=== PATIENT | female | born 1990 | race Caucasian/White ===

== ENCOUNTER 2020-12-05 14:12 | Outpatient (CLI) | payer OTHER, SELFPAY | END 2020-12-05 14:13 | disposition home or self-care (01) | LOC: ANHLAB 14:21 | PROVIDERS: PCP Family Medicine; Visit Provider Obstetrics & Gynecology | DX: Z34.91 Encounter for supervision of normal pregnancy, unspecified, first trimester (principal) | CPT/HCPCS: 36415; 86870; 86886; 86900; 86901 ==

== ENCOUNTER 2021-05-27 11:27 | Outpatient (CLI) | payer OTHER, SELFPAY ==
[2021-05-27 12:54] LABS: Hematocrit 31.8 % (37.0-47.0); Mean Corpuscular HGB Conc 34.6 g/dl (32-36); Mean Corpuscular Volume 83.9 fl (80-100); Mean Platelet Volume 9.3 fl (7.4-10.4); Platelet Count Result 335 k/mm3 (150-375); Red Blood Count 3.79 M/mm3 (4.2-5.4); Red Cell Distribution Width 12.7 % (11.5-14.5); White Blood Count 11.2 K/mm3 (4.5-10.0)
[2021-05-27 13:07] LABS: Glucose 1 Hour PP 50gm Dose 141 mg/dL
[2021-05-27 13:49] LABS: HIV 1/2 Ab P24 Ag Result Negative (Negative)
== END 2021-05-27 11:28 | disposition home or self-care (01) ==
LOC: ANHLAB 11:30
PROVIDERS: PCP Family Medicine; Visit Provider Obstetrics & Gynecology
DX: Z34.92 Encounter for supervision of normal pregnancy, unspecified, second trimester (principal); Z3A.00 Weeks of gestation of pregnancy not specified
CPT/HCPCS: 36415; 82947; 85027; 86703; 86850; 86870; 86886; 86900; 86901; G0432

== ENCOUNTER 2021-06-01 08:06 | Outpatient (CLI) | payer OTHER, SELFPAY ==
[2021-06-01 08:49] LABS: Glucose Fasting Gestational 90 mg/dL (>/=95)
[2021-06-01 10:29] LABS: Glucose 1 Hour Gest 186 mg/dL (>/=180)
[2021-06-01 11:25] LABS: Glucose 2 Hour Gest 118 mg/dL (>/= 155)
[2021-06-01 12:29] LABS: Glucose 3 Hour Gest 94 mg/dL (>/=140)
== END 2021-06-01 08:07 | disposition home or self-care (01) ==
PROVIDERS: PCP Family Medicine; Visit Provider Obstetrics & Gynecology
DX: R73.09 Other abnormal glucose (principal)
CPT/HCPCS: 36415; 82951; 82952

== ENCOUNTER 2021-07-17 14:26 | Outpatient (CLI) | payer OTHER, SELFPAY ==
[2021-07-17 15:35] LABS: SARS-CoV-2 Ag Negative (Negative)
== END 2021-07-17 14:27 | disposition home or self-care (01) ==
LOC: CHSLAB 14:27
PROVIDERS: PCP Family Medicine; Visit Provider Family Medicine
DX: Z20.822 Contact with and (suspected) exposure to COVID-19 (principal)
CPT/HCPCS: 87426; C9803

== ENCOUNTER 2022-12-01 03:30 | Emergency (ER) | payer OTHER, SELFPAY ==
[2022-12-01 03:39] VITALS: BP 146/106; PULSE 84; RESP 16; TEMP 36.8; O2SAT 100
--- NOTE | 2022-12-01 04:00 | ED.GENADULT ---
HPI - General Adult General Chief complaint: Wound/Laceration Stated complaint: Finger Laceration History of Present Illness HPI narrative: This is a 32-year-old female presenting ED with a finger laceration. Patient was cutting wood with a chainsaw when she caught her finger on the blade. She has a Shallow 1 cm laceration to the medial aspect of her 4th digit. It is not gaping. No numbness tingling or weakness. unknown when her last tetanus was. Related Data Home Medications Medication Instructions Recorded Confirmed No Home Medications 12/01/22 12/01/22 Allergies Allergy/AdvReac Type Severity Reaction Status Date / Time omeprazole Allergy Severe Anaphylactic Verified 07/01/17 14:56 Shock Penicillins Allergy Intermediate Rash Verified 07/01/17 14:56 albuterol Allergy Unknown Verified 12/01/22 03:38 Exam Narrative: APPEARANCE: No apparent distress. patient is pleasant polite in the interview Head: atraumatic. EYES: EOMI, NOSE: Atraumatic NECK: Trachea midline RESPIRATORY: No increased rate of breathing CARDIOVASCULAR: RRR, ABDOMINAL: Non-distended MUSCULOSKELETAl: No obvious deformities NEURO: Alert. Moving 4/4 extremities SKIN:: focal exam of the right hand reveals a shallow 1 cm laceration. Non gaping. No damage to internal structures. PSYCHIATRIC: Normal affect Course Vital Signs Vital signs: Vital Signs Temperature 98.2 F 12/01/22 03:39 Pulse Rate 84 12/01/22 03:39 Respiratory Rate 16 12/01/22 03:39 Blood Pressure 146/106 H 12/01/22 03:39 Pulse Oximetry 100 12/01/22 03:39 Oxygen Delivery Room Air 12/01/22 03:39 Temperature 98.2 F 12/01/22 03:39 Pulse Rate 84 12/01/22 03:39 Respiratory Rate 16 12/01/22 03:39 Blood Pressure 146/106 H 12/01/22 03:39 Pulse Oximetry 100 12/01/22 03:39 Oxygen Delivery Room Air 12/01/22 03:39 Medical Decision Making [facility] Narrative Medical decision making narrative: -Presentation: 32-year-old female presenting with a shallow finger laceration. Unknown tetanus. 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 -External Chart Review: none -Hx from independent Sources: none -Discussion of Management/Consultants: none -Independent interpretation of studies: none Dx tests considered but not ordered: none -Procedures: none -Interventions: Tdap, bacitracin, Band-Aid -Shared decision making / Disposition: discussed sutures versus glue versus no repair. Wound is not gaping shallow and does not need to be sutured. Patient is comfortable w/ Band-Aid. She will return if she develops signs of infection. -RX Vital Signs Vital Signs: Vital Signs Temperature 98.2 F 12/01/22 03:39 Pulse Rate 84 12/01/22 03:39 Respiratory Rate 16 12/01/22 03:39 Blood Pressure 146/106 H 12/01/22 03:39 Pulse Oximetry 100 12/01/22 03:39 Oxygen Delivery Room Air 12/01/22 03:39 Temperature 98.2 F 12/01/22 03:39 Pulse Rate 84 12/01/22 03:39 Respiratory Rate 16 12/01/22 03:39 Blood Pressure 146/106 H 12/01/22 03:39 Pulse Oximetry 100 12/01/22 03:39 Oxygen Delivery Room Air 12/01/22 03:39 Discharge Plan Discharge Clinical Impression: Laceration Patient Disposition: Home, Self-Care Condition: Stable Instructions: Antibiotic Form, Laceration (ED) Additional Instructions: Your seen in the emergency department for the finger laceration. It was not deep enough to require sutures. Please keep it clean and use Neosporin/ bacitracin with a Band-Aid. Please return emergency department if he becomes red, inflamed or has pus drainage. Otherwise please follow-up with your primary care physician. Prescriptions: No Action No Home Medications Follow-up/Referrals: Rere,MD Gianni [Primary Care Provider] -
[2022-12-01] MEDS: TETANUS,DIPHTHERIA,AC PERTUSSIS ADULT 0.5 ML (ADACEL) IM (04:07)
[2022-12-01 04:19] VITALS: BP 158/111; PULSE 84; RESP 16; O2SAT 100
== END 2022-12-01 04:20 | disposition home or self-care (01) ==
LOC: CHSED 04:06
PROVIDERS: Emergency Provider Emergency Medicine; PCP Family Medicine
DX: S61.214A Laceration without foreign body of right ring finger without damage to nail, initial encounter (principal); Z23 Encounter for immunization; W29.3XXA Contact with powered garden and outdoor hand tools and machinery, initial encounter
CPT/HCPCS: 90471; 90715; 99282

== ENCOUNTER 2023-07-28 14:56 | Outpatient (CLI) | payer OTHER, SELFPAY ==
--- NOTE | ~2023-07-28 | US_ITS ---
EXAMINATION: US OB <= 14 weeks fetus DATE: 07/28/2023 15:42 INDICATION: Amenorrhea with likely first trimester TECHNIQUE: Real-time pelvic ultrasound utilizing both a transvaginal and transabdominal probe was pe rformed. The interpreting radiologist was not present for the study. COMPARISON: None. FINDINGS: The uterus measures 9.7 x 7.9 x 9.2 cm. There is an intrauterine gestational sac.Single pole w ith crown-rump length measuring 6.3, which correlates with an estimated gestational age of 12 weeks a nd 5 days. heart motion is identified measuring 157 beats per minute (bpm) by M-mode Doppler. The bilateral ovaries were unable to be visualized. There is no free fluid in the pelvis. IMPRESSION: 1. Single living fetus with heart rate of 157 bpm. 2. Gestational age by ultrasound of 12 weeks 5 day(s) +/- 1 week and 1 days with ultrasound estimate d date of delivery (GAUDENCIO) of 02/04/2024. Reviewed, dictated and finalized at location A. 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 Single living fetus with heart rate of 157 bpm. 2. Gestational age by ultrasound of 12 weeks 5 day(s) +/- 1 week and 1 days wi th ultrasound estimated date of delivery (GAUDENCIO) of 02/04/2024.
== END 2023-07-28 14:57 | disposition home or self-care (01) ==
PROVIDERS: PCP Family Medicine; Visit Provider Obstetrics & Gynecology
DX: N91.2 Amenorrhea, unspecified (principal)
CPT/HCPCS: 76801

== ENCOUNTER 2024-01-04 13:58 | Observation (INO) | payer OTHER, SELFPAY ==
[2024-01-04] VITALS (38 sets, daily range): BP systolic 130–168; BP diastolic 82–113; PULSE 63–90; RESP 16; TEMP 36.6; BMI 29.9
--- NOTE | ~2024-01-04 | US_ITS ---
EXAMINATION: US OB /maternal detail DATE: 01/04/2024 13:54 INDICATION: anatomic survey. No pericardial care. TECHNIQUE: Real-time ultrasound of the pelvis was performed. COMPARISON: Ultrasound 07/28/2023 FINDINGS: There is a single living fetus in vertex presentation. The placenta is fundal. heart rate is 1 31 beats per minute (bpm). The amniotic fluid index is 18.3 cm, which is normal. The cervical length is 2.9 cm on transabdominal images, which is normal. The following biometric data were obtained: Biparietal diameter (BPD): 8.7 cm; head circumference (HC): 33.3 cm; abdominal circumference (AC): 31 .6 cm; femur length (FL): 6.7 cm. These measurements are concordant. Estimated weight is 2707 g +/- 406 g, which correlates with the 49th percentile when 02/04/24 is used as estimated date of delivery. As single measurements, these parameters are each equal to the following estimated gestational ages: BPD: 35 weeks 2 days. HC: 38 weeks 0 days. AC: 35 weeks 4 days. FL: 34 weeks 5 days. estimated gestational age based solely on measurements from this exam is 35 weeks 6 days +/- 2 weeks 4 days. The brain is not well evaluated. The visualized portions of the spine are normal. The heart is normal . The diaphragm, stomach, kidneys, and bladder are normal. There are two umbilical arteries to yield a 3-vessel cord. The cord insertion is normal. IMPRESSION: 1. Single living fetus in vertex presentation. 2. Estimated weight is 2707 g +/- 406 g, which correlates with the 49th percentile when 4 is used as estimated date of delivery. This day was set by ultrasound on 07/28/2023. 3. brain not well evaluated. Otherwise normal anatomic survey. Reviewed, dictated and finalized at location A. IMPRESSION: 1. Single living fetus in vertex presentation. 2. Estimated weight is 2707 g +/- 406 g, which correlates with the 49th percentile when 02/04/24 is used as estimated date of delivery. This day was set by ultrasound on 07/28/2023. 3. brain not well evaluated. Otherwise normal anatomic survey.
--- NOTE | 2024-01-04 12:20 | PC.NURSE ---
Dr. Barrett had called from office with orders on this pt prior to her arrival. Pt has only had 1 care visit in August. Hx of preeclampsia with all 3 previous pregnancies and 3 previous C/S's. Hx of delivering at 34-36 wks gestation.
[2024-01-04 13:45] LABS: Basophils Absolute Auto 0.1 K/mm3 (0.0-0.1); Basophils Percent Auto 0.6 % (0.2-1.2); Eosinophils Absolute Auto 0.2 K/mm3 (0-0.3); Eosinophils Percent Auto 1.6 % (0-4.4); Hematocrit 31.8 % (37.0-47.0); Hemoglobin 10.4 g/dL (12.0-15.0); Immature Granulocyte Absolute 0.08 K/mm3 (0.00-0.031); Immature Granulocyte Percent A 0.7 % (0-0.5); Lymphocytes Absolute Auto 1.73 K/mm3 (0.9-3.2); Mean Corpuscular HGB Conc 32.7 g/dl (32-36); Mean Corpuscular Hemoglobin 26.7 pg (26-34); Mean Corpuscular Volume 81.5 fl (80-100); Mean Platelet Volume 10.5 fl (7.4-10.4); Monocytes Absolute Auto 0.5 K/mm3 (0.1-0.6); Monocytes Percent Auto 4.5 % (2.6-8.5); Neutrophils Percent Auto 77.6 % (45.5-73.1); Platelet Count Result 312 k/mm3 (150-375); Red Cell Distribution Width 13.2 % (11.5-14.5); White Blood Count 11.6 K/mm3 (4.5-10.0)
[2024-01-04 13:53] LABS: Creatinine Urine 149.3 mg/dL; Total Protein Urine Random 25 mg/dL; Ur Ttl Prot Creatinine Ratio 0.17 mg/mg (0-0.20)
[2024-01-04 13:54] LABS: Alanine Aminotransferase 12 U/L (6-35); Albumin Level 3.4 g/dL (3.5-5.1); Alkaline Phosphatase 197 U/L (38-126); Anion Gap 7 mmol/L (4-12); Aspartate Amino Transferase 24 U/L (14-36); Bilirubin,Total 0.4 mg/dL (0.2-1.3); Blood Urea Nitrogen 12 mg/dL (7-17); Calcium 8.8 mg/dL (8.4-10.2); Carbon Dioxide 20 mmol/L (22-30); Chloride 107 mmol/L (98-107); Estimated Glomerular Filt Rate > 60; Glucose 96 mg/dL (65-110); Potassium 4.1 mmol/L (3.4-5.0); Sodium 134 mmol/L (137-145)
[2024-01-04 14:03] LABS: Amphetamine Screen Urine Negative (Negative); Barbiturate Screen Urine Negative (Negative); Benzodiazepines Screen Urine Negative (Negative); Cannabinoid Screen Urine Negative (Negative); Cocaine Screen Urine Negative (Negative); Methadone Screen Urine Negative (Negative); Opiate Screen Urine Negative (Negative); Phencyclidine Screen Urine Negative (Negative)
[2024-01-04 14:13] LABS: Appearance Urine Clear (Clear); Bacteria Urine None Seen /hpf; Bilirubin Urine Negative (Negative); Blood Urine Negative (Negative); Color Urine Yellow (Yellow); Glucose Urine UA Negative (Negative); Ketones Urine Negative (Negative); Leukocyte Esterase Ur 1+ LEU/UL (Negative); Need Manual Microscopic Reviewed; Nitrate Urine Negative (Negative); Non Pathogenic Casts 0-2; Protein Urine 1+ mg/dL (Negative); RBC Urine 0-2 /hpf (0-2); Specific Grav Ur 1.018 (1.001-1.035); Squamous Epithelial Cell Urine Occasional /hpf (Few); WBC Urine 21-50 /hpf (0-3)
[2024-01-04 14:14] LABS: Add Urine Microscopic? YES
[2024-01-04] MEDS: LABETALOL HCL 100 MG TABLET PO (14:21)
[2024-01-04 14:33] LABS: HIV 1/2 Ab P24 Ag Result Negative (Negative); Hepatitis B Surface Antigen Negative (Negative); Rubella IgG Antibody 22.6 IU/ML
[2024-01-04 14:57] LABS: Hepatitis C Virus Antibody Negative (Negative)
[2024-01-04 15:21] LABS: Rapid Plasma Reagin Non-Reactive (NonReactive)
[2024-01-04] MEDS: LABETALOL HCL INJ 100 MG/20 ML VIAL 20 MG IV PUSH (15:31)
[2024-01-04] MEDS: LABETALOL HCL INJ 100 MG/20 ML VIAL 40 MG IV PUSH (16:43)
[2024-01-04] MEDS: BETAMETHASONE SOD PHOS/ACETATE 30 MG/5 ML VIAL 12 MG IM (16:57)
[2024-01-04] MEDS: FAMOTIDINE 20 MG/2 ML VIAL IV PUSH (17:39)
--- NOTE | 2024-01-04 18:23 | PM.IMHP ---
H&P: HPI History of Present Illness Date/Time: 01/04/24 18:23 Chief Complaint: exacerbation of chronic hypertension intrauterine insufficient care Narrative: 33 yo who presents at 35w6d with elevated blood pressures. Pt presented to outpatient OB visit. Pt was noted to have severe range BP. Pt had not have care since her initial OB visit in August at 15w. Pt had elevated blood pressures at that time. She was started on labetalol 100 mg BID. Pt states she has been compliant with that medication as well as daily low dose aspirin. Pt was a history of preeclampsia. Pt was admitted to antepartum service of blood pressure control. Review of Systems Cardiovascular: Cardiovascular: Denies chest pain, Denies leg edema, Denies palpitations, Denies dyspnea and Denies dyspnea on exertion Respiratory: Respiratory: Denies cough, Denies dyspnea and Denies dyspnea on exertion Gastrointestinal: Gastrointestinal: Denies abdominal pain, Denies constipation, Denies diarrhea, Denies nausea and Denies vomiting Genitourinary: Genitourinary: Denies hematuria, Denies urinary frequency, Denies dysuria, Denies pelvic pain, Denies urinary incontinence and Denies vaginal discharge Neurologic: Reports system reviewed and no additional complaints, except as documented Psychiatric: Psychiatric: Reports no additional psychiatric complaints Endocrine: Endocrine: Denies palpitations PMFSH Past Medical History Medical History Anxiety Degenerative disc disease Fibromyalgia Hypertension Surgical History Surgical History Delivery by section (07/31/17) primary c/s preeclampsia Delivery by section (08/15/18) rpt c/s Delivery by section (06/12/21) rpt c/s Social History Social History Smoking status: Never smoker Second hand tobacco smoke exposure: Yes Alcohol intake: never Substance use: former Substance use type: marijuana Last use: 06/15/2023 Lack of Transportation: No Lack of Food: Never True Current Housing: I Have Housing Concerned About Future Housing: No Difficulty Paying Gas/Electric Bills: No Difficulty Paying for Meds: No Currently Unemployed: No Education: High School Diploma/GED Difficulty w/ Childcare or Family Care: No Living arrangements: other Additional living arrangements comments: single Occupation/Education: occupation 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 Gender identity (if verbalized by the patient): Female Sexual Orientation (if Verbalized by the Patient): Straight or Heterosexual Meds Home Medications and Allergies Home Medications Medication Instructions Recorded Confirmed Type labetalol 100 mg tablet 100 mg PO Q12H #90 tabs 08/17/23 01/04/24 Rx vitamins-iron fumarate 65 1 tablet PO DAILY 08/17/23 01/04/24 History mg iron-folic acid 1 mg tablet aspirin 81 mg tablet,delayed 162 mg PO BID 01/04/24 01/04/24 History release (Adult Aspirin Regimen) Allergies Allergy/AdvReac Type Severity Reaction Status Date / Time omeprazole Allergy Severe Anaphylactic Verified 01/04/24 11:02 Shock Penicillins Allergy Intermediate Rash Verified 01/04/24 11:02 albuterol AdvReac Intermediate Unknown Verified 01/04/24 12:59 Vital Signs Vital Signs - 24 hr 01/04/24 12:41 01/04/24 12:45 01/04/24 13:00 Pulse Rate 72 76 83 Blood Pressure 152/97 H 150/103 H 150/105 H Blood Pressure [Right Arm] 01/04/24 13:17 01/04/24 13:52 01/04/24 14:21 Pulse Rate 77 71 68 Blood Pressure 156/100 H 158/102 H 159/102 H Blood Pressure [Right Arm] 01/04/24 15:00 01/04/24 15:15 01/04/24 15:30 Pulse Rate 65 76 68 Blood Pressure 163/93 H 164/107 H 166/113 H Blood Pressure [Right Arm] 01/04/24 15:45 01/04/24 16:00 01/04/24 16:1
[2024-01-04] MEDS: hydrALAZINE HCL 20 MG/ML VIAL 10 MG IV PUSH (18:27)
[2024-01-04] MEDS: LABETALOL HCL 100 MG TABLET 200 MG PO (20:57)
[2024-01-05] VITALS (14 sets, daily range): BP systolic 130–151; BP diastolic 84–95; PULSE 72–110; RESP 18–20; TEMP 36.7–36.9; O2SAT 97–100
--- NOTE | 2024-01-05 07:22 | PC.NURSE ---
Dr. Barrett on unit and in to see pt. Discussed BP's. thinking about increasing her Labetalol to TID. OK to give morning dose now.
[2024-01-05] MEDS: LABETALOL HCL 100 MG TABLET 200 MG PO ×2 (07:35→12:10)
[2024-01-05] MEDS: FAMOTIDINE 20 MG TABLET PO (09:59)
--- NOTE | 2024-01-05 11:57 | PC.NURSE ---
Dr. Barrett informed of BP's from this morning. Order received to give additional dose of Labetalol 200 mg po now. He will be by to see pt again later.
--- NOTE | 2024-01-05 15:36 | PM.DS ---
DS: Admitting Diagnosis Discharge Date 01/05/24 Admitting Diagnosis Intrauterine Exacerbation of chronic hypertension Insufficient DS: Discharge Diagnosis Discharge Diagnosis (1) Insufficient care in third trimester: Code(s): O09.33 - Supervision of with insufficient care, third trimester Status: Acute (2) Chronic hypertension affecting : Code(s): O10.919 - Unspecified pre-existing hypertension complicating , unspecified trimester Status: Acute (3) Supervision of high risk , unspecified, third trimester: Code(s): O09.93 - Supervision of high risk , unspecified, third trimester Status: Acute DS: Summary Hospital Course Reason for hospitalization: exacerbation of chronic hypertension Hospital Course: 33-year-old female who presented to the office at 35 weeks 5 days for routine OB visit. Patient had not been seen for any care since August. Patient is a known chronic hypertensive. She states she was taking labetalol 100 mg b.i.d. as well as low-dose aspirin. Patient was found have severe range blood pressures. She was admitted for blood pressure control and evaluation for preeclampsia. Status at Discharge Functional status at discharge: independent ambulation Overall status at discharge: patient is back to baseline Time Spent with Patient Time attestation: Total time spent providing and/or coordinating discharge services: Time spent: Less than 30 minutes Exam Const: General: cooperative, comfortable and no acute distress Resp: Effort & Inspection: normal respiratory effort and able to speak in complete sentences Cardio: Rate: regular rate Rhythm: regular rhythm GI: GI Palp: Yes Soft to palpation, No Tenderness to palpation present (GI) and No Guarding due to palpation present (GI) DS: Data Data Completed and Pending Labs on day of discharge: Labs from last 24 hours 01/04/24 13:19 Antibody Identification Anti-D Antigen Identification TNP AYAN, IgG Interpret Negative AYAN, Poly Interpret TNP AYAN, Complement Interp Negative Discharge Plan Discharge Discharging Clinician: Tito Barrett Patient Disposition: Home, Self-Care Activity: as tolerated Diet: regular Patient Instructions: Antibiotic Form Stand Alone Forms: General Discharge Information Follow-up/Referrals: Tito Barrett MD [Physician] - 1 Week Discharge Medications: New labetalol 100 mg Tablet 200 mg PO TID Qty: 90 1RF Continued vit-iron fum-folic ac 65 mg iron- 1 mg tablet 1 tablet PO DAILY aspirin [Adult Aspirin Regimen] 81 mg tablet,delayed release (DR/EC) 162 mg PO BID Discontinued labetalol 100 mg tablet 100 mg PO Q12H Qty: 90 2RF Date of admission: 01/04/24 13:58 Primary Care Provider: RereGianni Admitting Provider: Thang Garcia Attending physician on admission: Thang Garcia Condition: Stable
--- NOTE | 2024-01-05 15:39 | PC.NURSE ---
Dr. Barrett called with discharge instructions for pt. informed of anti-D antibody that blood bank identified and they sent a laminated card and a letter for pt to keep with her. OK to give Celestone now.
[2024-01-05] MEDS: BETAMETHASONE SOD PHOS/ACETATE 30 MG/5 ML VIAL 12 MG IM (16:00)
== END 2024-01-05 16:11 | disposition home or self-care (01) ==
LOC: ANHOBOP 01-05 10:07 → ANHOBPP 01-05 15:38
PROVIDERS: Admitting Provider Student in an Organized Health Care Education/Training Program; PCP Family Medicine; Visit Provider Student in an Organized Health Care Education/Training Program
DX: O10.913 Unspecified pre-existing hypertension complicating pregnancy, third trimester (principal); O09.33 Supervision of pregnancy with insufficient antenatal care, third trimester; O09.523 Supervision of elderly multigravida, third trimester; Z3A.35 35 weeks gestation of pregnancy
CPT/HCPCS: 36415; 59025; 76805; 80053; 80307; 81001; 82570; 84156; 84550; 85025; 86592; 86703; 86762; 86803; 86850; 86880; 86900; 86901; 86902; 87086; 87340; 96372; 96374; 96375; 96376; A9270; G0378; G0379; G0432; J0360; J0702

== ENCOUNTER 2024-01-13 09:25 | Inpatient (IN) | payer OTHER, SELFPAY ==
[2024-01-13] VITALS (60 sets, daily range): BP systolic 118–177; BP diastolic 79–106; PULSE 52–128; RESP 18–23; TEMP 36.1–36.8; O2SAT 89–100; BMI 30.8
--- NOTE | 2024-01-13 09:09 | PM.IMHP ---
H&P: HPI History of Present Illness Date/Time: 01/13/24 09:09 Chief Complaint: intrauterine at term Chronic hypertension Prior x3 Request for permanent sterilization Narrative: 33-year-old who presents at 37 weeks 0 days for repeat in the setting of chronic hypertension. Patient's is complicated by chronic hypertension on labetalol. Patient's previous pregnancies were complicated by preeclampsia. Patient was seen for her new OB visit in August. Patient was lost to care until her last visit at 35 weeks. Patient's blood pressures were elevated at that visit. Patient's lab work was negative for preeclampsia. Will plan for repeat at 37 weeks Review of Systems Cardiovascular: Cardiovascular: Denies chest pain, Denies leg edema, Denies palpitations, Denies dyspnea and Denies dyspnea on exertion Respiratory: Respiratory: Denies cough, Denies dyspnea and Denies dyspnea on exertion Gastrointestinal: Gastrointestinal: Denies abdominal pain, Denies constipation, Denies diarrhea, Denies nausea and Denies vomiting Genitourinary: Genitourinary: Denies hematuria, Denies urinary frequency, Denies dysuria, Denies pelvic pain, Denies urinary incontinence and Denies vaginal discharge Neurologic: Reports system reviewed and no additional complaints, except as documented Psychiatric: Psychiatric: Reports no additional psychiatric complaints Endocrine: Endocrine: Denies palpitations PMFSH Past Medical History Medical History Anxiety Degenerative disc disease Fibromyalgia Hypertension Surgical History Surgical History Delivery by section (07/31/17) primary c/s preeclampsia Delivery by section (08/15/18) rpt c/s Delivery by section (06/12/21) rpt c/s Social History Social History Smoking status: Never smoker Second hand tobacco smoke exposure: Yes Alcohol intake: never Substance use: former Substance use type: marijuana Last use: 06/15/2023 Lack of Transportation: No Lack of Food: Never True Current Housing: I Have Housing Concerned About Future Housing: No Difficulty Paying Gas/Electric Bills: No Difficulty Paying for Meds: No Currently Unemployed: No Education: High School Diploma/GED Difficulty w/ Childcare or Family Care: No Living arrangements: other Additional living arrangements comments: single Occupation/Education: occupation 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 Gender identity (if verbalized by the patient): Female Sexual Orientation (if Verbalized by the Patient): Straight or Heterosexual Meds Home Medications and Allergies Home Medications Medication Instructions Recorded Confirmed Type vitamins-iron fumarate 65 1 tablet PO DAILY 08/17/23 01/11/24 History mg iron-folic acid 1 mg tablet aspirin 81 mg tablet,delayed 162 mg PO BID 01/04/24 01/11/24 History release (Adult Aspirin Regimen) labetalol 100 mg tablet 200 mg PO TID #90 tabs 01/05/24 01/11/24 Rx Allergies Allergy/AdvReac Type Severity Reaction Status Date / Time omeprazole Allergy Severe Anaphylactic Verified 01/11/24 13:50 Shock Penicillins Allergy Intermediate Rash Verified 01/11/24 13:50 albuterol AdvReac Intermediate Unknown Verified 01/11/24 13:50 Exam Const: General: no acute distress Eyes: EOM: EOMs intact bilaterally Neck: Neck: supple Thyroid: thyroid normal Chest: Breast/axilla inspection: normal inspection of the breasts Breast/axilla palpation: normal palpation of the breasts, normal palpation of the axillae and no axillary lymphadenopathy Resp: Effort & Inspection: normal respiratory effort Auscultation: clear to auscultation bilaterally Cardio: Rate: regular rate Rhythm: regular r
--- NOTE | 2024-01-13 09:12 | WPDHPUPDATE1 ---
History and Physical Update Update Date/Time: 01/13/24 09:12 History and Physical has been reviewed, including an updated exam of the patient. There are NO changes in the patient's condition. Risks, benefits, and alternatives have been discussed and questions answered. Patient agrees to proceed with procedure.
--- NOTE | 2024-01-13 09:25 | LDADM ---
This patient, Simin Medeiros, was admitted to Labor/Delivery/Recovery 120 on 01/13/24 at 09:25. Plans for labor, pain management and were discussed with patient. Patient/family oriented to hospital policies and general routines including ID bracelet, bed and alarms, visiting hours, pain management, procedures, bathroom and other care routines, personal items, smoking policy, room service/diet and guest tray routines, security routines, and visiting hours. Patient/Family are encouraged to report perceived risks to care and to ask questions if they do not understand what they are told or what they should do. See OBIX for further documentation.
[2024-01-13 10:28] LABS: Basophils Absolute Auto 0.1 K/mm3 (0.0-0.1); Basophils Percent Auto 0.7 % (0.2-1.2); Eosinophils Absolute Auto 0.2 K/mm3 (0-0.3); Eosinophils Percent Auto 1.5 % (0-4.4); Hematocrit 32.7 % (37.0-47.0); Hemoglobin 10.6 g/dL (12.0-15.0); Immature Granulocyte Absolute 0.08 K/mm3 (0.00-0.031); Immature Granulocyte Percent A 0.8 % (0-0.5); Mean Corpuscular HGB Conc 32.4 g/dl (32-36); Mean Corpuscular Hemoglobin 26.4 pg (26-34); Mean Corpuscular Volume 81.3 fl (80-100); Mean Platelet Volume 10.4 fl (7.4-10.4); Monocytes Absolute Auto 0.5 K/mm3 (0.1-0.6); Monocytes Percent Auto 4.9 % (2.6-8.5); Neutrophils Absolute Auto 8.1 K/mm3 (1.3-6.7); Neutrophils Percent Auto 76.1 % (45.5-73.1); Platelet Count Result 347 k/mm3 (150-375); Red Blood Count 4.02 M/mm3 (4.2-5.4); Red Cell Distribution Width 13.2 % (11.5-14.5); White Blood Count 10.7 K/mm3 (4.5-10.0)
[2024-01-13 10:39] LABS: Alanine Aminotransferase 17 U/L (6-35); Albumin Level 3.3 g/dL (3.5-5.1); Alkaline Phosphatase 195 U/L (38-126); Anion Gap 3 mmol/L (4-12); Aspartate Amino Transferase 24 U/L (14-36); Bilirubin,Total 0.3 mg/dL (0.2-1.3); Blood Urea Nitrogen 11 mg/dL (7-17); Calcium 8.5 mg/dL (8.4-10.2); Carbon Dioxide 22 mmol/L (22-30); Chloride 107 mmol/L (98-107); Estimated CRCL calculation 115 ml/min; Estimated Glomerular Filt Rate > 60; Glucose 72 mg/dL (65-110); Potassium 4.4 mmol/L (3.4-5.0); Sodium 132 mmol/L (137-145)
[2024-01-13 11:19] LABS: HIV 1/2 Ab P24 Ag Result Negative (Negative)
[2024-01-13 12:34] LABS: Rapid Plasma Reagin Non-Reactive (NonReactive)
[2024-01-13] MEDS: ACETAMINOPHEN 500 MG TABLET 1000 MG PO (12:34)
[2024-01-13] MEDS: LACTATED RINGERS 1,000 ML 125 ML IV CONT (12:40)
--- NOTE | 2024-01-13 12:53 | WPDANESEPPF ---
Anes - Initial Pre Proc Eval Procedure: Operation Date: 01/13/24 12:00 Proposed Procedures p Repeat Section with Bilateral Salpingectomy - Tito Barrett MD Date/Time: 01/13/24 12:53 Surgeon: Tito Barrett MD Pre Op Diagnosis: chronic hypertension, prior csection Patient Data Age: 33 Gender: F Height: 1.6 m Weight: 79 kg Last Vital Signs Pulse 75 01/13/24 12:30 BP 170/98 H 01/13/24 12:30 Allergies Allergy/AdvReac Type Severity Reaction Status Date / Time omeprazole Allergy Severe Anaphylactic Verified 01/11/24 13:50 Shock Penicillins Allergy Intermediate Rash Verified 01/11/24 13:50 albuterol AdvReac Intermediate Unknown Verified 01/11/24 13:50 Home Medications Medication Instructions Recorded Confirmed Type vitamins-iron fumarate 65 1 tablet PO DAILY 08/17/23 01/11/24 History mg iron-folic acid 1 mg tablet aspirin 81 mg tablet,delayed 162 mg PO BID 01/04/24 01/11/24 History release (Adult Aspirin Regimen) labetalol 100 mg tablet 200 mg PO TID #90 tabs 01/05/24 01/11/24 Rx Laboratory Tests 01/13/24 01/13/24 10:05 10:06 WBC 10.7 H K/mm3 (4.5-10.0) RBC 4.02 L M/mm3 (4.2-5.4) Hgb 10.6 L g/dL (12.0-15.0) Hct 32.7 L % (37.0-47.0) MCV 81.3 fl (80-100) MCH 26.4 pg (26-34) MCHC 32.4 g/dl (32-36) RDW 13.2 % (11.5-14.5) Plt Count 347 k/mm3 (150-375) MPV 10.4 fl (7.4-10.4) Immature Gran % (Auto) 0.8 H % (0-0.5) Neut % (Auto) 76.1 H % (45.5-73.1) Lymph % (Auto) 16.0 L % (18.3-44.2) [place] % (Auto) 4.9 % (2.6-8.5) Eos % (Auto) 1.5 % (0-4.4) Baso % (Auto) 0.7 % (0.2-1.2) Lymph # (Auto) 1.70 K/mm3 (0.9-3.2) [place] # (Auto) 0.5 K/mm3 (0.1-0.6) Eos # (Auto) 0.2 K/mm3 (0-0.3) Baso # (Auto) 0.1 K/mm3 (0.0-0.1) Abs Immat Gran (auto) 0.08 H K/mm3 (0.00-0.031) Absolute Neuts (auto) 8.1 H K/mm3 (1.3-6.7) Absolute Nucleated RBC 0.000 K/mm3 (0.0-0.012) Nucleated RBC % 0.0 % (0.0-0.2) Sodium 132 L mmol/L (137-145) Potassium 4.4 mmol/L (3.4-5.0) Chloride 107 mmol/L (98-107) Carbon Dioxide 22 mmol/L (22-30) Anion Gap 3 L mmol/L (4-12) BUN 11 mg/dL (7-17) Creatinine 0.60 L mg/dL (0.7-1.0) Estim Creat Clear Calc 115 ml/min Estimated GFR > 60 (59 - ) Glucose 72 mg/dL (65-110) Uric Acid 5.0 mg/dL (2.5-7.5) Calcium 8.5 mg/dL (8.4-10.2) Total Bilirubin 0.3 mg/dL (0.2-1.3) AST 24 U/L (14-36) ALT 17 U/L (6-35) Alkaline Phosphatase 195 H U/L (38-126) Total Protein 7.0 g/dL (6.3-8.2) Albumin 3.3 L g/dL (3.5-5.1) RPR Non-reactive (NonReactive) HIV 1&2 Ab/P24 Ag 4thGn Negative (Negative) Blood Type B Negative Antibody Screen Positive Antibody Identification Pending Antigen Identification Pending AYAN, IgG Interpret Pending AYAN, Poly Interpret Pending AYAN, Complement Interp Pending Patient hx anesthesia problems: none Family hx anesthesia problems: none Results Review: All pre-operative results and documents have been reviewed as part of the pre-operative evaluation. [facility] Past Medical History Medical History Anxiety Degenerative disc disease Fibromyalgia Hypertension Surgical History Surgical History Delivery by section (07/31/17) primary c/s preeclampsia Delivery by section (08/15/18) rpt c/s Delivery by section (06/12/21) rpt c/s Social History Social History Smoking status: Never smoker Second hand tobacco smoke exposure:
[2024-01-13] MEDS: FAMOTIDINE 20 MG/2 ML VIAL IV PUSH (12:55)
[2024-01-13] MEDS: ONDANSETRON INJ 4 MG/2 ML VIAL IV PUSH (12:55)
[2024-01-13] MEDS: ceFAZolin 2 GM/D5W 50 ML 2 GM/50 ML BAG IVPB (13:16)
--- NOTE | 2024-01-13 14:15 | W.PM.OBCSD ---
OB - Delivery Note Procedure Delivery date: 01/13/24 Pre-op diagnosis: Chronic Hypertension and Previous Delivery Post-op Diagnosis: Same Induction method: None Delivery monitor: External FHT Prior to decision for section, ACOG/SM labor guidelines were considered and discussed with the patient and staff. Decision made to proceed with the section.: Yes Procedure Performed: Repeat Secondary branch: low cervical, transverse and Tubal Ligation Surgeon: Tito Barrett MD Anesthesia type: Spinal Description of Procedure/Findings: The patient was taken to the operating room where epidural anesthesia was found to be adequate. She was then prepped and draped in the usual sterile fashion in the dorsal supine position with a leftward tilt. A Pfannenstiel skin incision was then made with the scalpel and carried through to the underlying layer of fascia. The fascia was then incised in the midline and the incision extended laterally with the Hargrove scissors. The superior aspect of the fascia was then grasped with the Álvaro clamps, elevated, and the underlying rectus muscles dissected off bluntly and sharply. Attention was then turned to the inferior aspect of this incision which, in a similar fashion, was grasped, tented up with the Álvaro clamps, and the rectus muscles dissected off both bluntly and sharply. The rectus muscles were then in the midline, and the peritoneum identified, tented up, and entered sharply with the Metzenbaum scissors. The peritoneal incision was then extended superiorly and inferiorly with good visualization of the bladder. The bladder blade was then inserted and the vesicouterine peritoneum identified, grasped with the pick-ups and entered sharply with the Metzenbaum scissors. This incision was then extended laterally and the bladder flap created digitally. The bladder blade was then reinserted and the lower uterine segment incised in a low, transverse fashion with the scalpel. The uterine incision was then extended laterally bluntly. The bladder blade was removed and the infant?s head delivered atraumatically. The nose and mouth were suctioned with the bulb suction, and the remainder of the infant was delivered atraumatically. The cord was clamped and cut. The was handed off to the waiting pediatricians (staff). Cord gasses were sent. The placenta was then removed manually, the uterus exteriorized, and cleared of all clots and debris. The uterine incision was repaired with 0 monocryl in a running fashion. Both fallopian tubes were identified and followed out to the fimbrae bilaterally. The left fallopian tube was grasped with Babcocks and elevated to identify an avascular space in the mesosalpinx. The fallopian tube was transected along the inferior mesosalpinx to the uterine corpus. The fallopian tube was then transected and removed at the level of the uterine corpus. The same procedure was repeated for the right fallopian tube. The uterus was returned to the abdomen. The uterus was then reinspected to ensure hemostasis as were all subfascial tissues. The peritoneum was re-approximated with 3-0 vicryl in a running fashion. The fascia was reapproximated with 0 vicryl in a running fashion. The subcutaneous layer was copiously irrigated to clear any clots or debris. The skin was closed with 4-0 vicryl. The patient tolerated the procedure well. Sponge, lap and needle counts were correct times three. The patient was taken to the recovery room in stable condition. Specimen: No Estimated Blood Loss: 640 Drains: No Packing: No Pathology: Yes (placenta) Complications: No immediate complications Condition: Stable Disposition: Floor [facility] Baby Date of : 01/13/24 Weeks of gestation at delivery: 37 Infant gender: Male presentation: vertex Placenta delivery description: Manual Removal Cord Vessel Description: 3 Vessels and Nuchal Cord (x2)
[2024-01-13] MEDS: OXYTOCIN 30 UNITS/NS 500 ML 30 UNITS/500 ML BAG 125 UNITS IV CONT (15:07)
[2024-01-13] MEDS: LABETALOL HCL 100 MG TABLET 200 MG PO ×2 (15:44→22:06)
[2024-01-13] MEDS: LABETALOL HCL INJ 100 MG/20 ML VIAL 40 MG IV PUSH (15:45)
[2024-01-13] MEDS: HYDROcodone/acetaminophen (*CRX) 5-325 MG TABLET 1 TAB PO ×2 (16:02→22:16)
[2024-01-13] MEDS: LORATADINE 10 MG TABLET PO (16:03)
[2024-01-13 16:08] LABS: Amphetamine Screen Urine Negative (Negative); Barbiturate Screen Urine Negative (Negative); Benzodiazepines Screen Urine Negative (Negative); Cannabinoid Screen Urine Negative (Negative); Cocaine Screen Urine Negative (Negative); Methadone Screen Urine Negative (Negative); Opiate Screen Urine Negative (Negative); Phencyclidine Screen Urine Negative (Negative)
--- NOTE | 2024-01-13 16:45 | PM.OBDSVD ---
DS: Admitting Diagnosis Admitting Diagnosis intrauterine at term chronic hypertension prior x3 insufficient care request for permanent sterilization DS: Discharge Diagnosis Discharge Diagnosis (1) Encounter for sterilization: Code(s): Z30.2 - Encounter for sterilization Status: Acute (2) delivery delivered: Code(s): O82 - Encounter for delivery without indication Status: Acute OB - DS: Summary OB Procedures : None OB Procedures Intrapartum: and Tubal ligation OB Procedures: : None Peripartum Data Infant Delivery Method: Section Procedures: Procedures Operation Date: 01/13/24 12:00 Actual Procedure Side Surgeon p Repeat Section with Bilateral Salpingectomy Tito Barrett MD complications: none Status at Discharge Functional status at discharge: independent ambulation Overall status at discharge: patient is progressing back to baseline Time Spent with Patient Time attestation: Total time spent providing and/or coordinating discharge services: Time spent: Less than 30 minutes Exam Const: General: comfortable and no acute distress Resp: Effort & Inspection: normal respiratory effort Auscultation: clear to auscultation bilaterally Cardio: Rate: regular rate GI: Inspection: non-distended GI Palp: Yes Soft to palpation, No Firmness to palpation present (GI), Yes Tenderness to palpation present (GI) (mild tenderness over incision ) and No Guarding due to palpation present (GI) Auscultation: normal bowel sounds Psych: Appearance: grossly normal Mental Status: mental status grossly normal DS: Data Data Completed and Pending Pending studies at discharge: Pending at discharge 01/13/24 14:43 Surgical [PTH] Routine Surgical [PTH] Routine Labs on day of discharge: Labs from last 24 hours 01/13/24 01/13/24 01/13/24 15:22 10:06 10:05 WBC 10.7 H RBC 4.02 L Hgb 10.6 L Hct 32.7 L MCV 81.3 MCH 26.4 MCHC 32.4 RDW 13.2 Plt Count 347 MPV 10.4 Immature Gran % (Auto) 0.8 H Neut % (Auto) 76.1 H Lymph % (Auto) 16.0 L [place] % (Auto) 4.9 Eos % (Auto) 1.5 Baso % (Auto) 0.7 Lymph # (Auto) 1.70 [place] # (Auto) 0.5 Eos # (Auto) 0.2 Baso # (Auto) 0.1 Abs Immat Gran (auto) 0.08 H Absolute Neuts (auto) 8.1 H Absolute Nucleated RBC 0.000 Nucleated RBC % 0.0 Sodium 132 L Potassium 4.4 Chloride 107 Carbon Dioxide 22 Anion Gap 3 L BUN 11 Creatinine 0.60 L Estim Creat Clear Calc 115 Estimated GFR > 60 Glucose 72 Uric Acid 5.0 Calcium 8.5 Total Bilirubin 0.3 AST 24 ALT 17 Alkaline Phosphatase 195 H Total Protein 7.0 Albumin 3.3 L Urine Opiates Screen Negative Urine Methadone Screen Negative Ur Barbiturates Screen Negative Ur Phencyclidine Scrn Negative Ur Amphetamine Screen Negative U Benzodiazepines Scrn Negative Urine Cocaine Screen Negative U Cannabinoids Screen Negative RPR Non-reactive HIV 1&2 Ab/P24 Ag 4thGn Negative Blood Type B Negative Antibody Screen Positive Antibody Identification Anti-D Antigen Identification Cancelled AYAN, IgG Interpret Negative AYAN, Poly Interpret TNP AYAN, Complement Interp Negative Discharge Plan Discharge Discharging Clinician: Tito Barrett Patient Disposition: Home, Self-Care Activity: as tolerated and pelvic rest Diet: regular Patient Instructions: Antibiotic Form, (DC), Tubal Ligation (DC) Stand Alone Forms: General Discharge Information Follow-up/Referrals: Tito Barrett MD [Physician] - 1 Week (patient needs a blood pressure check in office) Discharge Medications: No Action vit-iron fum-folic ac 65 mg iron- 1 mg tablet 1 tablet PO DAILY aspirin [Adult Aspirin Regimen] 81 mg tablet,delayed
[2024-01-13] MEDS: DOCUSATE SODIUM 100 MG CAPSULE PO (18:47)
[2024-01-13] MEDS: SIMETHICONE 80 MG TAB.CHEW PO (18:47)
[2024-01-13] MEDS: ACETAMINOPHEN 325 MG TABLET 650 MG PO (18:47)
[2024-01-13] MEDS: KETOROLAC 15 MG/ML VIAL (*BKC) IV PUSH (18:48)
--- NOTE | 2024-01-13 19:16 | OBPPTRN ---
1715 Patient transferred to post room #281 via stretcher. Support person present. Oriented to unit, room, information board, rooming in, admission packet and security measures. Patient verbalizes understanding.
[2024-01-14] VITALS: BP 115/82
[2024-01-14] MEDS: ACETAMINOPHEN 325 MG TABLET 650 MG PO ×2 (00:22→06:31)
[2024-01-14] MEDS: KETOROLAC 15 MG/ML VIAL (*BKC) IV PUSH ×3 (00:23→13:25)
[2024-01-14] MEDS: ZOLPIDEM TARTRATE (*CRX) 5 MG TABLET PO (00:23)
[2024-01-14 04:30] VITALS: BP 125/75; PULSE 77; RESP 18; TEMP 36.8; O2SAT 100
[2024-01-14 05:19] LABS: Basophils Absolute Auto 0.1 K/mm3 (0.0-0.1); Basophils Percent Auto 0.5 % (0.2-1.2); Eosinophils Absolute Auto 0.1 K/mm3 (0-0.3); Eosinophils Percent Auto 1.3 % (0-4.4); Hematocrit 25.1 % (37.0-47.0); Hemoglobin 7.9 g/dL (12.0-15.0); Immature Granulocyte Absolute 0.05 K/mm3 (0.00-0.031); Immature Granulocyte Percent A 0.5 % (0-0.5); Lymphocytes Absolute Auto 1.92 K/mm3 (0.9-3.2); Lymphocytes Percent Auto 18.6 % (18.3-44.2); Mean Corpuscular HGB Conc 31.5 g/dl (32-36); Mean Corpuscular Hemoglobin 26.4 pg (26-34); Mean Corpuscular Volume 83.9 fl (80-100); Mean Platelet Volume 10.6 fl (7.4-10.4); Monocytes Absolute Auto 0.5 K/mm3 (0.1-0.6); Monocytes Percent Auto 5.1 % (2.6-8.5); Neutrophils Absolute Auto 7.6 K/mm3 (1.3-6.7); Platelet Count Result 290 k/mm3 (150-375); Red Blood Count 2.99 M/mm3 (4.2-5.4); Red Cell Distribution Width 13.4 % (11.5-14.5); White Blood Count 10.3 K/mm3 (4.5-10.0)
[2024-01-14 06:31] VITALS: PULSE 74
[2024-01-14] MEDS: LABETALOL HCL 100 MG TABLET 200 MG PO ×2 (06:31→13:26)
--- NOTE | 2024-01-14 07:47 | WPDANLDPN2 ---
Anes-Prog Note L&D Date/Time: 01/14/24 07:47 Comfortable throughout: section Neuraxial method: spinal Epidural/Spinal procedure site: clean & non-tender Neuro status: Neuro function grossly intact. Cardiovascular status: normal Respiratory status: normal Airway patency: baseline Mental status: baseline Post-Op hydration status: normal Vital Signs: Last Vital Signs Temp 36.8 C 01/14/24 04:30 Pulse 74 01/14/24 06:31 Resp 18 01/14/24 04:30 BP 125/75 01/14/24 04:30 Pulse Ox 100 01/14/24 04:30 O2 Del Method Room Air 01/13/24 20:00 Pain score (VAS): 2/10 I/O: Intake & Output 01/13/24 01/13/24 01/14/24 15:59 23:59 07:59 Intake Total 841 Output Total 820 490 750 Balance -820 351 -750 Post-procedural complaints: none Patient feedback: Patient satisfied with anesthetic care.
--- NOTE | 2024-01-14 07:47 | WPDANLDNPN2 ---
Anes-Prog Note L&D-Neuraxial Date/Time: 01/14/24 07:47 Neuraxial medications: intrathecal PF morphine Opiod-related complaints: pruritis moderate, treatment effective Patient feedback: Patient satisfied with post-operative pain management.
[2024-01-14] MEDS: SIMETHICONE 80 MG TAB.CHEW PO (09:08)
[2024-01-14] MEDS: HYDROcodone/acetaminophen (*CRX) 5-325 MG TABLET 1 TAB PO (09:09)
[2024-01-14] MEDS: MULTIVIT/MIN/PREN/FOL AC/IRON TABLET 1 TAB PO (09:09)
[2024-01-14] MEDS: LORATADINE 10 MG TABLET PO (09:09)
[2024-01-14] MEDS: DOCUSATE SODIUM 100 MG CAPSULE PO (09:09)
[2024-01-14] MEDS: POLYSACCHARIDE IRON COMPLEX 150 MG CAPSULE PO (09:09)
[2024-01-14 09:10] VITALS: BP 136/78; PULSE 78; RESP 18; TEMP 36.2
--- NOTE | 2024-01-14 10:13 | PC.NURSE ---
Per , patient does not need a post delivery dose of Rhogam. The lab has confirmed that the patient is already producing anti-D antibodies.
--- NOTE | 2024-01-14 10:32 | PM.OBPNVD ---
OB - PN: Subj Subjective Date/time seen: 01/14/24 10:32 Narrative: POD#1 Simin reports doing well today. Her bleeding is light. Her pain is controlled. She is tolerating regular diet, voiding, passing gas, and ambulating without issues. She denies any issues with her incision. She is planning to bottle feed. Her son was transferred to ; she would like to go home today. OB - PN: Obj Data Labs 01/14/24 04:36 01/13/24 10:05 Labs: Laboratory Results - last 24 hr 01/13/24 01/13/24 01/13/24 10:05 10:06 15:22 WBC 10.7 H RBC 4.02 L Hgb 10.6 L Hct 32.7 L MCV 81.3 MCH 26.4 MCHC 32.4 RDW 13.2 Plt Count 347 MPV 10.4 Immature Gran % (Auto) 0.8 H Neut % (Auto) 76.1 H Lymph % (Auto) 16.0 L [place] % (Auto) 4.9 Eos % (Auto) 1.5 Baso % (Auto) 0.7 Lymph # (Auto) 1.70 [place] # (Auto) 0.5 Eos # (Auto) 0.2 Baso # (Auto) 0.1 Abs Immat Gran (auto) 0.08 H Absolute Neuts (auto) 8.1 H Absolute Nucleated RBC 0.000 Nucleated RBC % 0.0 Sodium 132 L Potassium 4.4 Chloride 107 Carbon Dioxide 22 Anion Gap 3 L BUN 11 Creatinine 0.60 L Estim Creat Clear Calc 115 Estimated GFR > 60 Glucose 72 Uric Acid 5.0 Calcium 8.5 Total Bilirubin 0.3 AST 24 ALT 17 Alkaline Phosphatase 195 H Total Protein 7.0 Albumin 3.3 L Urine Opiates Screen Negative Urine Methadone Screen Negative Ur Barbiturates Screen Negative Ur Phencyclidine Scrn Negative Ur Amphetamine Screen Negative U Benzodiazepines Scrn Negative Urine Cocaine Screen Negative U Cannabinoids Screen Negative RPR Non-reactive HIV 1&2 Ab/P24 Ag 4thGn Negative Blood Type B Negative Antibody Screen Positive Antibody Identification Anti-D Antigen Identification Cancelled AYAN, IgG Interpret Negative AYAN, Poly Interpret TNP AYAN, Complement Interp Negative Baby's Blood Type Baby's AYAN 01/14/24 04:36 WBC 10.3 H RBC 2.99 L Hgb 7.9 L Hct 25.1 L MCV 83.9 MCH 26.4 MCHC 31.5 L RDW 13.4 Plt Count 290 MPV 10.6 H Immature Gran % (Auto) 0.5 Neut % (Auto) 74.0 H Lymph % (Auto) 18.6 [place] % (Auto) 5.1 Eos % (Auto) 1.3 Baso % (Auto) 0.5 Lymph # (Auto) 1.92 [place] # (Auto) 0.5 Eos # (Auto) 0.1 Baso # (Auto) 0.1 Abs Immat Gran (auto) 0.05 H Absolute Neuts (auto) 7.6 H Absolute Nucleated RBC 0.000 Nucleated RBC % 0.0 Sodium Potassium Chloride Carbon Dioxide Anion Gap BUN Creatinine Estim Creat Clear Calc Estimated GFR Glucose Uric Acid Calcium Total Bilirubin AST ALT Alkaline Phosphatase Total Protein Albumin Urine Opiates Screen Urine Methadone Screen Ur Barbiturates Screen Ur Phencyclidine Scrn Ur Amphetamine Screen U Benzodiazepines Scrn Urine Cocaine Screen U Cannabinoids Screen RPR HIV 1&2 Ab/P24 Ag 4thGn Blood Type B Negative Antibody Screen Not Reportable Antibody Identification Antigen Identification AYAN, IgG Interpret AYAN, Poly Interpret AYAN, Complement Interp Baby's Blood Type B pos Baby's AYAN Positive OB - PN A/P Assessment and Plan (1) delivery delivered: Code(s): O82 - Encounter for delivery without indication Status: Acute (2) Chronic hypertension affecting : Code(s): O10.919 - Unspecified pre-existing hypertension complicating , unspecified trimester Status: Acute (3) Anemia: Code(s): D64.9 - Anemia, unspecified Status: Acute Plan day: 1 Plan: routine care and discharge home Comments: - BPs normal range; continue labetalol 200mg q8h - Venofer 500mg IV once - PO pain meds - Regular diet - Ambulation and hydration encouraged - Pelvic rest, no heavy lifting - Incision care discussed - Hospital f/u on Tuesday-- Office bp/incision check on or Tue Time Spent W
[2024-01-14] MEDS: IRON SUCROSE COMPLEX 500 MG in SODIUM CHLORIDE 0.9% IV 250 ML 79 MG IVPB (11:34)
[2024-01-14] MEDS: LIDOCAINE 5% PATCH 1 PATCH TRANSDERM (11:38)
--- NOTE | 2024-01-14 11:38 | PM.OBDSVD ---
DS: Admitting Diagnosis Discharge Date 01/14/24 Admitting Diagnosis Chronic hypertension Previous DS: Discharge Diagnosis Discharge Diagnosis (1) delivery delivered: Code(s): O82 - Encounter for delivery without indication Status: Acute (2) Status post bilateral salpingectomy: Code(s): Z90.79 - Acquired absence of other genital organ(s) Status: Acute (3) Anemia: Code(s): D64.9 - Anemia, unspecified Status: Acute OB - DS: Summary OB Procedures : Ultrasound OB Procedures Intrapartum: low cervical, transverse and Tubal ligation OB Procedures: : None and Blood Type (pt has anti-D; rhogam not indicated) Peripartum Data Delivery Method: Section Procedures: Procedures Operation Date: 01/13/24 12:00 Actual Procedure Side Surgeon p Repeat Section with Bilateral Salpingectomy Tito Barrett MD complications: none 1: Gender: Male Disposition of : NICU Status at Discharge Functional status at discharge: independent ambulation Overall status at discharge: patient is back to baseline Time Spent with Patient Time attestation: Total time spent providing and/or coordinating discharge services: Exam Const: General: cooperative, healthy appearing, comfortable and no acute distress Orientation/consciousness: patient oriented x3 Resp: Effort & Inspection: normal respiratory effort Auscultation: clear to auscultation bilaterally Cardio: Rate: regular rate GI: Inspection: non-distended and incision (covered w/ steri strips) GI Palp: No abdominal tenderness and Yes Soft to palpation Auscultation: normal bowel sounds : Other: fundus firm Skin: General skin exam: normal color Neuro: General: patient oriented x3 Extrem: General: normal to inspection Psych: Appearance: grossly normal Affect: normal affect Attitude: cooperative DS: Data Data Completed and Pending Pending studies at discharge: Pending at discharge 01/13/24 14:43 Surgical [PTH] Routine Surgical [PTH] Routine Labs on day of discharge: Labs from last 24 hours 01/14/24 01/13/24 01/13/24 04:36 15:22 10:06 WBC 10.3 H RBC 2.99 L Hgb 7.9 L Hct 25.1 L MCV 83.9 MCH 26.4 MCHC 31.5 L RDW 13.4 Plt Count 290 MPV 10.6 H Immature Gran % (Auto) 0.5 Neut % (Auto) 74.0 H Lymph % (Auto) 18.6 [place] % (Auto) 5.1 Eos % (Auto) 1.3 Baso % (Auto) 0.5 Lymph # (Auto) 1.92 [place] # (Auto) 0.5 Eos # (Auto) 0.1 Baso # (Auto) 0.1 Abs Immat Gran (auto) 0.05 H Absolute Neuts (auto) 7.6 H Absolute Nucleated RBC 0.000 Nucleated RBC % 0.0 Urine Opiates Screen Negative Urine Methadone Screen Negative Ur Barbiturates Screen Negative Ur Phencyclidine Scrn Negative Ur Amphetamine Screen Negative U Benzodiazepines Scrn Negative Urine Cocaine Screen Negative U Cannabinoids Screen Negative RPR Non-reactive Blood Type B Negative B Negative Antibody Screen Not Reportable Positive Antibody Identification Anti-D Antigen Identification Cancelled AYAN, IgG Interpret Negative AYAN, Poly Interpret TNP AYAN, Complement Interp Negative Screen Pending Baby's Blood Type B pos Baby's AYAN Positive Doses of RhIg Required Pending Discharge Plan Discharge Attending physician on discharge: Nessa James Discharging Clinician: Tito Barrett Anticipated Discharge Date/Time: 01/14/24 16:00 Patient Disposition: Home, Self-Care Activity: as tolerated and pelvic rest Diet: regular Wound Care Instructions: incision open to air Patient Instructions: Antibiotic Form, (DC), Tubal Ligation (DC) Stand Alone Forms: General Discharge Information Follow-up/Referrals: Tito Barrett MD [Physician] - 1 Week (patient needs a blood pressure hussain
[2024-01-14 13:25] VITALS: BP 136/76; PULSE 86
[2024-01-14] MEDS: HYDROcodone/acetaminophen (*CRX) 10-325 MG TABLET 1 TAB PO ×2 (13:25→16:14)
--- NOTE | 2024-01-14 15:23 | PCCCNOTE ---
Met with pt. and KARIE Jenkins. This is pt.'s fourth child. She has two girls and one boy at home with her. Pt. reports she is already on service with [employer] and [employer]. Lives in [facility] normally with Gregory. Did provide resources just in case she is interested. Reports she has all necessary supplies for baby at home including a car seat and crib. Will attempt to breast feed. Baby has been transferred to [facility]. Pt. did not have any reasoning as to why she did not have consistent care. Tested negative for substances upon admission and negative during her last OB appointment in December. Baby umbilical cord was tested and is pending results at this time. Pt. transferred this morning already to [facility] prior to CC meeting with pt. She anticipates discharging today. Will follow for umbilical screen test results.
--- NOTE | 2024-01-14 16:00 | PC.NURSE ---
Patient received instruction on viewing the discharge video Mother & Baby Care, The First Two Weeks . Patient was given the opportunity and encouraged to ask questions. Patient verbalized understanding of information shared and has been given the mother/baby guide for home reference.
== END 2024-01-14 16:16 | disposition home or self-care (01) | DRG 539 ==
LOC: ANHLDR 16:49 → ANHOB2 01-14 11:36 → ANHLDR 01-16 13:05 → ANHOB2 01-16 13:05 → ANHOBPP 01-16 13:05
PROVIDERS: Admitting Provider Student in an Organized Health Care Education/Training Program; PCP Family Medicine; Visit Provider Obstetrics & Gynecology
PROC: 10D00Z1 Extraction of Products of Conception, Low, Open Approach (ICD-10-PCS; CPT 59514; principal; 2024-01-13 12:00)
DX: O34.219 Maternal care for unspecified type scar from previous cesarean delivery (principal); Z30.2 Encounter for sterilization; O10.92 Unspecified pre-existing hypertension complicating childbirth; O69.81X0 Labor and delivery complicated by cord around neck, without compression, not applicable or unspecified; Z3A.37 37 weeks gestation of pregnancy; Z37.0 Single live birth
CPT/HCPCS: 36415; 80053; 80307; 84550; 85025; 85461; 86592; 86703; 86850; 86880; 86900; 86901; 88302; 88307; A9270; G0432; J0690; J1756; J1885; J2274; J2405; J2590; J7050; J7120

== ENCOUNTER 2024-01-19 10:47 | Outpatient (CLI) | payer OTHER, SELFPAY ==
--- NOTE | ~2024-01-19 | US_ITS ---
EXAMINATION:US venous doppler LE RT INDICATION:Right lower extremity pain and swelling TECHNIQUE: Multiple grayscale, color flow and Doppler images of the right lower extremity deep venous systems were obtained and reviewed. COMPARISON:No prior studies for comparison. FINDINGS: The common femoral, superficial femoral and popliteal veins demonstrate normal respiratory variation, augmentation and compressibility. Color flow is also seen within the posterior tibial, pe roneal, greater saphenous and profunda veins. IMPRESSION: 1: No lower extremity deep venous thrombosis. Reviewed, dictated and finalized at location B.
== END 2024-01-19 10:48 | disposition home or self-care (01) ==
LOC: ANHIMG 10:48
PROVIDERS: PCP Family Medicine; Visit Provider Obstetrics & Gynecology
DX: M79.89 Other specified soft tissue disorders (principal); M79.604 Pain in right leg
CPT/HCPCS: 93971

== ENCOUNTER 2024-08-22 14:11 | Outpatient (CLI) | payer OTHER, SELFPAY ==
[2024-08-22 17:16] LABS: HIV 1 P24 AG Negative (Negative); HIV 1/2 AB Negative (Negative)
[2024-08-23 14:57] LABS: RPR Screen NON-REACTIVE (NON-REACTIVE)
[2024-08-24 02:38] LABS: Hepatitis A Antibody IgM NON-REACTIVE (NON-REACTIVE); Hepatitis B Core Antibody NON-REACTIVE (NON-REACTIVE)
[2024-08-24 03:09] LABS: Hepatitis B Surface Antigen NON-REACTIVE (NON-REACTIVE); Hepatitis C Virus Antibody NON-REACTIVE (NON-REACTIVE)
== END 2024-08-22 14:12 | disposition home or self-care (01) ==
PROVIDERS: PCP Family Medicine; Visit Provider Physician Assistant
DX: Z72.51 High risk heterosexual behavior (principal)
CPT/HCPCS: 36415; 80074; 86592; 86695; 86696; 87806

== ENCOUNTER 2024-12-03 10:01 | Outpatient (CLI) | payer OTHER, SELFPAY ==
--- NOTE | 2024-12-03 10:08 | EST_ITS ---
Patient Info Name: Simin Medeiros Age: 34 years : 1990 Gender: Female Ht: 64 in Wt: 143 lbs BSA: 1.72 m2 HR: 84 bpm BP: 142 / 82 mmHg Heart Rhythm: Sinus Rhythm Technical Quality: Good Exam Date: 12/03/2024 10:35 AM Exam Location: Echo Lab Patient Status: Outpatient Admit Date: 12/03/2024 Staff Ordering Physician: Nicki, Aramis ROMAN Attending Provider: Nicki, Aramis ROMAN Exam Type: CA stress test treadmill Study Info A treadmill exercise stress test was performed. History/Risk Factors Hypertension: Yes History/Risk Factors history of methamphetamine abuse. Summary 1. 1. Negative Gianni exercise stress test for ischemic ST changes by ECG criteria. 2. 2. Good functional capacity, achieving 10 METs of workload. 3. 3. Appropriate HR response to exercise. 4. 4. Appropriate HR recovery at 1 minute post exercise. 5. 5. No imaging with stress testing. Protocol: Gianni Stress ECG Details Stage: REST Duration (min): 1 min : 4 sec Speed (mph): 0.0 Grade (%): 0 HR (bpm): 85 SBP (mmHg): 142 DBP (mmHg): 82 METS: --- Stage: REST Duration (min): 10 min : 19 sec Speed (mph): 0.0 Grade (%): 0 HR (bpm): 94 SBP (mmHg): 142 DBP (mmHg): 82 METS: --- Stage: STAGE 1 Duration (min): 1 min : 0 sec Speed (mph): 1.7 Grade (%): 10 HR (bpm): 120 SBP (mmHg): 142 DBP (mmHg): 82 METS: --- Stage: STAGE 1 Duration (min): 2 min : 0 sec Speed (mph): 1.7 Grade (%): 10 HR (bpm): 144 SBP (mmHg): 142 DBP (mmHg): 82 METS: --- Stage: STAGE 1 Duration (min): 3 min : 0 sec Speed (mph): 1.7 Grade (%): 10 HR (bpm): 141 SBP (mmHg): 142 DBP (mmHg): 62 METS: --- Stage: STAGE 2 Duration (min): 1 min : 0 sec Speed (mph): 2.5 Grade (%): 12 HR (bpm): 161 SBP (mmHg): 142 DBP (mmHg): 62 METS: --- Stage: STAGE 2 Duration (min): 2 min : 0 sec Speed (mph): 2.5 Grade (%): 12 HR (bpm): 162 SBP (mmHg): 142 DBP (mmHg): 62 METS: --- Stage: STAGE 2 Duration (min): 3 min : 0 sec Speed (mph): 2.5 Grade (%): 12 HR (bpm): 170 SBP (mmHg): 155 DBP (mmHg): 72 METS: --- Stage: STAGE 3 Duration (min): 1 min : 0 sec Speed (mph): 3.4 Grade (%): 14 HR (bpm): 175 SBP (mmHg): 155 DBP (mmHg): 72 METS: --- Stage: STAGE 3 Duration (min): 2 min : 0 sec Speed (mph): 3.4 Grade (%): 14 HR (bpm): 182 SBP (mmHg): 155 DBP (mmHg): 72 METS: --- Stage: STAGE 3 Duration (min): 3 min : 0 sec Speed (mph): 3.4 Grade (%): 14 HR (bpm): 184 SBP (mmHg): 125 DBP (mmHg): 71 METS: --- Stage: RECOVERY Duration (min): 0 min : 59 sec Speed (mph): 0.0 Grade (%): 0 HR (bpm): 162 SBP (mmHg): 125 DBP (mmHg): 71 METS: --- Stage: RECOVERY Duration (min): 1 min : 59 sec Speed (mph): 0.0 Grade (%): 0 HR (bpm): 143 SBP (mmHg): 140 DBP (mmHg): 64 METS: --- Stage: RECOVERY Duration (min): 2 min : 59 sec Speed (mph): 0.0 Grade (%): 0 HR (bpm): 132 SBP (mmHg): 140 DBP (mmHg): 64 METS: --- Stage: RECOVERY Duration (min): 3 min : 59 sec Speed (mph): 0.0 Grade (%): 0 HR (bpm): 117 SBP (mmHg): 135 DBP (mmHg): 63 METS: --- Stage: RECOVERY Duration (min): 4 min : 59 sec Speed (mph): 0.0 Grade (%): 0 HR (bpm): 125 SBP (mmHg): 135 DBP (mmHg): 63 METS: --- Stage: RECOVERY Duration (min): 5 min : 59 sec Speed (mph): 0.0 Grade (%): 0 HR (bpm): 117 SBP (mmHg): 131 DBP (mmHg): 62 METS: --- Stage: RECOVERY Duration (min): 6 min : 59 sec Speed (mph): 0.0 Grade (%): 0 HR (bpm): 124 SBP (mmHg): 131 DBP (mmHg): 62 METS: --- Stage: RECOVERY Duration (min): 7 min : 59 sec Speed (mph): 0.0 Grade (%): 0 HR (bpm): 120 SBP (mmHg): 126 DBP (mmHg): 65 METS: --- Stage: RECOVERY Duration (min): 8 min : 24 sec Speed (mph): 0.0 Grade (%): 0 HR (bpm): 121 SBP (mmHg): 126 DBP (mmHg): 65 METS: --- Rest HR: 94 bpm Peak HR: 185 bpm Rest Sys BP: 142 mmHg Peak Sys BP: 155 mmHg Max Pred HR: 188 bpm % Max Pred HR: 98 % Target HR: 160 bpm Max RPP: 28,675 bpm*mmHg Mason Score: -3 Target HR Summary: Test terminated after reaching target heart rate (85% max predicted) BP Response: Normal blood pressure response Termination Reason: Fatigue,Dyspnea Maximum heart rate obtained Cardiac Symptoms: None Max ST Seg Deviation: -2.40 mm Total Time: 9 min : 0 sec Rest Stafford BP: 82 mmHg Peak Stafford BP: 72 mmHg Angina Score: None Total METS: 10.3 Resting ECG Sinus rhythm with sinus arrythmia, LVH with ST-T changes. Stress ECG No ischemic changes noted. Arrhythmias Occasional PVCs. Report Signatures
--- OUTSIDE RECORDS SUMMARY | 2024-12-03 11:19 | XMS_ITS | Clinical Summary ---
Author Organization [facility] Address [address] [place] [place] [address] Care Team Providers Care Warehouse Receiving Clerk Name Role Phone Unavailable Primary Care Provider Unavailabl e Source Comments [facility],non-owned Affiliates and Associated Physician Practices is amultiple site organization consisting of ambulatory clinics and hospital sitesin [place], [place], [place] and [place]. This disclosure is being madepursuant to the Care Everywhere program and may not contain all information available regarding this patient. Last updated 18.[facility] Allergies Active Allergy Reactions Criticality Noted Date Comments Albuterol Urticaria Medium 12/26/2020 Penicillins Urticaria Medium 12/26/2020 Omeprazole Swelling 12/26/2020 Medications * This document contains information received from the source organization and may not represent a complete record from that organization. * Be aware that medications may not be up to date on this document. Alwaysverify current medications with the patient. plus iron (NATATAB) 29-1 MG tablet Take 1 (one) tablet by mouth once daily 90 tablet 4 1 Active ferrous sulfate 325 (65 FE) MG tablet Take 1 (one) tablet by mouth once daily 100 tablet 1 Active Additional Information Patient not taking.Reported on 06/22/2021 NIFEdipine CR osmotic 24hr (PROCARDIA-XL) 30 MG tabletIndicatio ns:Hypertension Take 1 (one) tablet by mouth 2 times daily Reasons: High Blood Pressure Disorder 50 tablet 1 1 Active lidocaine-prilo radu (EMLA) 2.5-2.5 % cream Apply 30 g to affected area 2 times daily 30 g 1 1 Active Additional Information Patient not taking.Reported on 06/29/2021 acetaminophen (TYLENOL) 500 MG capsule Take 2 (two) capsules by mouth every 6 hours as needed for Fever or Pain 60 capsule 1 1 Active Additional Information Patient not taking.Reported on 06/29/2021 ibuprofen (MOTRIN) 600 MG tablet Take 1 (one) tablet by mouth every 6 hours as needed for Pain 60 tablet 1 1 Active oxyCODONE, immediate release, (ROXICODONE) 5 MG tablet Take 1 (one) tablet by mouth every 6 hours as needed for Pain 10 tablet 1 Active oxyCODONE (OXY-IR) 5 MG capsule Take 1 (one) capsule by mouth every 6 hours as needed for Pain 12 capsule 1 Active oxyCODONE (OXY-IR) 5 MG capsule Take 1 (one) capsule by mouth every 6 hours as needed for Pain 12 capsule 1 Active Active Problems Patient Care Coordination No te Formatting of this note migh t be different from the original. [employer] form completed. Diapers given. 06/15/2021, 06/22/2021 Problem Noted Date Diagnosed Date Wound dehiscence, , delivered with complication 06/22/2021 Assessment & Plan (06/22/2021 4:11 PM PHYSICS AND ASTRONOMY PROFESSOR): Would breakdown shortly after staple removal. No concern for systemic infection. Still using roxicodone to help with wound packing. May be having difficulty with hygiene from staying with the baby in NICU. 1. Encouraged use of tylenol and motrin on a schedule--Simin had only been taking scheduled motrin and as needed Roxicodone 2. Wet to dry twice a day 3. prescribed Lidocaine cream instead of patch as patch removal was painful 4. Discouraged excessive Roxicodone use 5. Follow up weekly until incision significantly closed care following delivery 08/2020 Assessment & Plan (06/15/2021 6:10 PM CDT): Incision healing well. Reports that she has been staying with at and did not pick pack worker prescription for roxicodone that was sent to her pharmacy in [place]. 1. encouraged to continue scheduled tylenol and motrin 2. eprescribed lidocaine patch Insulin controlled gestation al diabetes mellitus (GDM) in third trimester 06/10/2021 Assessment & Plan (06/22/2021 10:16 AM PHYSICS AND ASTRONOMY PROFESSOR): 1. Diabetes testing 4-5 weeks after delivery with review at 6 week visit. Assessment & Plan (06/15/2021 6:07 PM CDT): 1. Diabetes testing 4-5 weeks after delivery with review at 6 week visit--requisition given for testing before final visit with referring OB. cardiac anomaly complicating , an tepartum 06/09/2021 Third 12/29/2020 Overview (12/29/2020): Prepreg weight: 136lbs; 5'3 History of pre-eclampsia; current hypertension 0 12/26/2020 Overview (02/23/2021): B-, AB: Positive, Anti D 1:8 (12/05/20); Immune, Rpr-NR, HIV-NR, Hbsag-NR 11/11/20 CMP: Sodium 139; Potassium 2.9; BUN 13; Crea 0.73; AST 19; ALT 22. H/h/p: 12.4; 37.5; 331 Blood pressures: 12/02/20: 138/82 ; 12/10/20: 136/78 02/20/21 24 hr UA TP: 153 Pt was in ED for threatened AB on 11/11/20: Bld Pressures: 159/111; 155/102; 149/101; 146/100 Anti D reported as likely d/t recent RH Immune Globulin Injection. BV: Treated with metrogel @ 12 wks. Assessment & Plan (06/15/2021 6:08 PM CDT): Mildly elevated blood pressures. 1. Reevaluate BP at next visit Assessment & Plan (03/25/2021 3:23 PM CDT): Elevated blood pressure today in office, has not taken her anti-hypertensive yet today. Asymptomatic for preeclampsia. Reports home blood pressure log to be appropriate. Maternal Medicine recommendations: 1. Continue aspirin at 162mg daily for preeclampsia risk reduction. Remains at risk for superimposed preeclampsa. 2. Continue Procardia 30mg XL daily--set alarm on phone to remember. 3. Instructed today to go home and take her Procardia, if blood pressure elevated 30-60 min to follow, promptly go to L/D and call her Fermentologist. Simin was agreeable. 4. Instructed to log her blood pressures and check twice daily, alert Fermentologist for elevations equal to or >155/95; either value. 5. Another log given with parameters, may need medication increase if elevation pattern persists. 6. Bring log to all obstetrical office visits. 7. Reviewed preeclampsia symptoms and when to seek evaluation. Handout previously provided with symptoms. 8. Serial growth 9. testing at 32 weeks to include weekly NST/BPP Assessment & Plan (02/25/2021 4:17 PM CDT): Chronic Hypertension: Hypertension prior to and during the first 20 weeks of this is consistent with chronic hypertension. Patient's blood pressures today were elevated and remained elevated on repeat evaluation. Chart review with primary Fermentologist also shows elevations prior to 20 weeks: 11/18: 148/96, 01/19: 146/88; along with diagnosis of hypertension. Elevations noted in ED on 11/11 could have been exacerbated by bleeding during her . B. Chronic hypertension is associated with a 20-25% risk for superimposed preeclampsia. Low dose aspirin has a small-moderate benefit in the prevention of preeclampsia in at risk women ([place] DSR, 2008). The reduction in risk is 15% with a number needed to treat of 89. There is an associated 8% reduction in the risk of delivery before 37 weeks gestation and a 14% reduction in . A significant reduction in small for gestational age fetus/birthweight has not been clearly demonstrated. There is no significant risk of low dose aspirin if initiated after the first trimester of . First trimester use of aspirin has an association with gastroschisis with a relative risk of 2.3-2.7 (Obstet Gynecol Survey 63:49, 2008). Low dose aspirin therapy is discussed. Antihypertensive therapy does not reduce the risk for superimposed preeclampsia. C. Aldomet and labetalol are the agents with the largest experience in (NIH, 2000). Both are FDA category C medications. Considerations with both include a potential association of beta-bernard use with growth disturbance and somnolence as an undesirable side effect of Aldomet. Labetalol is the agent which is typically used by providers at this institution. D. Diuretic therapy during is associated with a reduction in the normal physiologic expansion of plasma volume. E. The targets of therapy with chronic hypertension are typically <160 mm Hg systolic and 90-105 mm Hg diastolic. Aggressive normalization of blood pressure does not have benefit otherwise; it may have an undesirable impact on outcome. Aggressive treatment of hypertension does not reduce the risk for superimposed preeclampsia. F. Chronic hypertension is associated with an elevated risk of growth disturbance. It provides an indication for periodic assessments of the growth throughout . A reasonably aggressive approach is an ultrasound for growth at 28 weeks gestation with subsequent assessments at 4-6 week intervals thereafter (NIH, 2000). G. Chronic hypertension is associated with an elevated risk for morbidity and mortality. It provides an indication for formal antepartum surveillance. Such surveillance is typically initiated at 32-34 weeks gestation. The mechanics and performance characteristics of formal surveillance are discussed. movement monitoring as an adjunct form of surveillance is discussed and emphasized. The risk of recurrence of preeclampsia in a subsequent has been reported to be up to 14 percent. Maternal Medicine recommendations: 1. Continue aspirin at 162mg daily for preeclampsia risk reduction. Remains at risk for superimposed preeclampsa. 2. Start Procardia 30mg XL daily. 3. Instructed to log her blood pressures and check twice daily, alert Fermentologist for elevations equal to or >155/95; either value. Log given with parameters. 4. Bring log to all obstetrical office visits. 5. Reviewed preeclampsia symptoms and when to seek evaluation. Handout provided with symptoms. 6. Serial growth 7. testing at 32 weeks to include weekly NST/BPP Assessment & Plan (12/31/2020 5:28 PM CDT): The risk of recurrence of preeclampsia in a subsequent has been reported to be up to 14 percent. It is unclear whether or not Simin has underlying chronic hypertension. She does check her blood pressure at home and reports mostly normal values. She may at a minimum have white coat hypertension. Her early value in our office was mildly elevated and the repeat value was unremarkable. The blood pressures from the emergency department may reflect her concern over the vaginal bleeding and reports of a threatened miscarriage. Maternal Medicine recommendations: 1. increase aspirin to 162 mg for preeclampsia risk reduction 2. Recommend 24 hr urine for total protein to be performed before 20 weeks gestation 3. Ob to re-evaluate home and office blood pressures 1. IF there are at least 2 values of 140/90 or greater demonstrated in the office, prior to 20 weeks of gestation, then this would meet criteria for a essential hypertension History of degenerative disc disease Overview (12/31/2020): lumbar region Assessment & Plan (12/31/2020 5:22 PM CDT): Maternal Medicine recommendations: 1. supported the use of icy hot medicated heat strips for back pain relief 2. If pain gets worse may benefit from physical therapy Maternal chronic hypertension in third trimester Assessment & Plan (06/22/2021 4:11 PM PHYSICS AND ASTRONOMY PROFESSOR): BP acceptable. Resolved Problems Problem Noted Date Diagnosed Date Resolved Date Encounter for ultrasound 05/27/2021 06/15/2021 Hx of section 05/27/202106/15 Hx of delivery, curr ently , unspecified trimester 05/27/2021 06/15/2021 Overview (05/27/2021): X 2, at 34 weeks and 35 weeks Rh negative, antepartum 05/27/2021 1108/2020 Rhesus isoimmunization affec ting management of mother, antepartum condition 12/26/2020 06/15/20 21 Overview (06/01/2021): Anti D titer: 12/05/20 1:8 02/20/21: 1:4 04/02/21: 1:4 05/27/21: 1:8 Assessment & Plan (03/25/2021 3:23 PM CDT): Anti D titer, 1:4, 02/20/21. Has not had her titer drawn since 02/20. FOB has not had phenotype performed. AGA growth yesterday without signs of anemia. A critical titer for anti-D and other antibodies is 1:16-1:32. At the level of a critical titer or greater, surveillance with serial middle cerebral artery peak systolic velocity Doppler ultrasound is warranted. Maternal Medicine recommendations: 1. Again recommend for the partner to have red blood cell phenotype performed, lab slip given again today for Simin to have titer assessed and her partner to do phenotype testing. 1. Monthly titers at this EGA, will increase to every two weeks in the 3rd trimester. 2. Reminded again today that we no longer have the availability to do cell free DNA screening of the D antigen as previously discussed. 3. Monthly growth ultrasound, MCA screening again in two weeks per formal ultrasound yesterday. 4. Rhogam is not indicated for this 5. We discussed that if there are signs of severe anemia that a transfusion may be recommended. 6. Even in the absence of a critical titer, delivery by 38 weeks is supported Assessment & Plan (02/25/2021 4:21 PM CDT): Anti D titer, 1:4, 02/20/21 A critical titer for anti-D and other antibodies is 1:16-1:32. At the level of a critical titer or greater, surveillance with serial middle cerebral artery peak systolic velocity Doppler ultrasound is warranted. Maternal Medicine recommendations: 1. Again recommend for the partner to have red blood cell phenotype performed 2. Informed Simin that we no longer have the availability to do cell free DNA screening of the D antigen as previously discussed. 3. monthly antibody screen and titer-gave will give lab requisition for the next values to be drawn in two weeks. 4. Monthly growth ultrasound, MCA screening not indicated at this juncture every two weeks, given critical titer not reached. 5. Rhogam is not indicated for this 6. We discussed that if there are signs of severe anemia that a transfusion may be recommended. 7. Even in the absence of a critical titer, delivery by 38 weeks is supported Assessment & Plan (12/31/2020 5:28 PM CDT): Reviewing the medical records from [facility] (encounter on November 11, 2020) the antibody screen was already positive. This encounter was prior to Simin's presentation for her 1st OB visit. The ER provider notes record that RhoGAM was withheld because of the positive antibody screen. The previous obstetric history does not sound like any of the previous children was affected by hemolytic disease of the --especially since Simin received RhoGAM in both of her previous pregnancies. The need for transfusion for that may be related to preeclampsia or another indication. Especially since the 2nd was not affected by hemolytic disease of the fetus or . Rh Alloimmunization Alloimmune hemolytic disease of the fetus and (HDFN) is a condition in which the red cells of the fetus or are destroyed by maternally-derived alloantibodies. These antibodies arise in the mother as the direct result of a blood group incompatibility between the mother and fetus, as when an Rh(D) negative mother carries an Rh(D) positive fetus but possible with other antibodies as well. Simin's partner has already been asked to have red blood cell phenotype being performed--he has yet to do the testing. We also discussed the potential to use cell free DNA screening to predict the presence of the D antigen as well as diagnostic testing through amniocentesis. A critical titer for anti-D and other antibodies is 1:16-1:32. At the level of a critical titer or greater, surveillance with serial middle cerebral artery peak systolic velocity Doppler ultrasound is warranted. I would recommend repeating antibody titers every 4 weeks, until 28 weeks, then repeat every 2 weeks until delivery. We discussed that if there are signs of severe anemia that a transfusion may be recommended. Even in the absence of a critical titer, delivery by 38 weeks is supported. Maternal Medicine recommendations: 1. request given again for the partner to have red blood cell phenotype performed 1. Simin will consider whether or not she wants to have cell free DNA screening of the D antigen depending or whether or not the partner gets testing performed 2. monthly antibody screen and titer-gave lab requisition for the next values to be drawn 3. Even in the absence of a critical titer, delivery by 38 weeks is supported Immunizations Immunization Administration Dates Next Due INFLUENZA VACCINE, QUADR. (F LUZONE; FLULAVAL; FLUARIX; AFLURIA QUADRIVALENT; 6MO+), 0.5 ML (IIV4) 06/10/2021 Rho D Immune Globulin 06/12/2021(Deferre d: See Comments - Baby is AB Negative) Family History Medical History Relation Name Comments Cancer - Ovarian Maternal Grandfather Diabetes; unknown type Maternal Grandfather Hypertension Maternal Grandfather Cancer - Ovarian Mother Hypertension Mother Diabetes; unknown type Paternal Grandmother Relation Name Status Comments Father Alive Maternal Grandfather Alive Maternal Grandmother Alive Mother Alive Paternal Grandfather Alive Paternal Grandmother Alive Social History Tobacco Use Types Packs/Day Years Used Date Smoking Tobacco: Never Smokeless Tobacco: Never Alcohol Use Standard Drinks/Week Comments Not Currently 0 (1 standard drink = 0.6 oz pur e alcohol) Comments No Sex and Gender Information Value Date Recorded Sex Assigned at Not on file Legal Sex Female 5:35 AM PHYSICS AND ASTRONOMY PROFESSOR Gender Identity Not on file Sexual Orientation Not on file Last Filed Vital Signs Vital Sign Reading Time Taken Comments Blood Pressure 133/88 06/29/2021 10:25 AM PHYSICS AND ASTRONOMY PROFESSOR Pulse 92 06/29/2021 10:25 AM PHYSICS AND ASTRONOMY PROFESSOR Temperature 36.3 C (97.4 F) 06/18/2021 9:51 AM CDT Respiratory Rate 15 06/18/2021 10:53 AM CDT Oxygen Saturation 98% 06/18/2021 10:53 AM CDT Inhaled Oxygen Concentration - - Weight 66.2 kg (146 lb) 06/29/2021 10:25 AM PHYSICS AND ASTRONOMY PROFESSOR Height 135 cm (4' 5.15 ) 06/18/2021 9:51 AM CDT Body Mass Index 36.34 06/18/2021 9:51 AM CDT Plan of Treatment Health Maintenance Due Date Last Done Comments PAP SMEAR 1992 DTAP/TDAP/TD VACCINES (1 - Tdap) 2011 HEPATITIS B VACCINE (1 of 3 - 19+ 3-dose series) 2011 COVID-19 VACCINE (1 - 2023-2 5 season) 2024 DEPRESSION SCREENING 08/15/2024 INFLUENZA VACCINE (Season Ended) 2025 06/10/2021, 07/29/2018 ZOSTER VACCINE (1 of 2) 2042 HEPATITIS C SCREENING Completed 04/20/2018 HIV SCREENING Completed 07/21/2018, 04/20/2018 HIB VACCINE Aged Out No longer eligi ble based on patient's age to complete this topic HPV VACCINE Aged Out No longer eligi ble based on patient's age to complete this topic MENINGOCOCCAL (Group B) VACCINE SHARED DECISION-MAKING Aged Out No longer eligible based on patient's age to complete this topic MENINGOCOCCAL GROUPS A/C/Y/W VACCINE Aged Out No longer eligible b ased on patient's age to complete this topic PNEUMOCOCCAL VACCINE Aged Out No long er eligible based on patient's age to complete this topic [place] [address] [place] [address] * Guarantor: SIMIN MEDEIROS Account Type Relation to Patient Date of Phone Billing Address Personal/Family [address] [place] [address] [facility] [employer] PA[employer] NO INSURANCE Member Subscriber Plan / Payer (Ef fective for All Dates) Name:Simin Medeiros Member ID:Not on file Relation to Subscriber:Not on file Name:SIMIN MEDEIROS Subscriber ID:Not on file Address: [address] [place] [address] Payer ID:Not on file Group ID:Not on file Type:Self Pay Address: [place], [place] * Guarantor: SIMIN MEDEIROS Account Type Relation to Patient Date of Phone Billing Address Personal/Family [address] [place] [address] [facility] [employer] NO INSURANCE Member Subscriber Plan / Payer (Ef fective for All Dates) Name:Simin Medeiros Member ID:Not on file Relation to Subscriber:Not on file Name:SIMIN MEDEIROS Subscriber ID:Not on file Address: [address] [place] [address] Payer ID:Not on file Group ID:Not on file Type:Self Pay Address: [place], [place] * Guarantor: SIMIN MEDEIROS Account Type Relation to Patient Date of Phone Billing Address Personal/Family [address] [place] [address] [facility] [employer] NO INSURANCE Member Subscriber Plan / Payer (Ef fective for All Dates) Name:Simin Medeiros Member ID:Not on file Relation to Subscriber:Not on file Name:JUDAHLANA OSORIOSIMIN Subscriber ID:Not on file Address: [facility] [place] [address] Payer ID:Not on file Group ID:Not on file Type:Self Pay Address: [place], [place] Advance Directives * Full Code (Latest Code Status on File) Date Activated Date Inactivated Comments 06/12/2021 10:33 PM 06/14/2021 3:02 PM * Full Code Date Activated Date Inactivated Comments 06/09/2021 8:37 PM 06/12/2021 10:33 PM
--- OUTSIDE RECORDS SUMMARY | 2024-12-03 11:19 | XMS_ITS | Clinical Summary ---
Author Organization [facility] Address [facility] [place] [address] Care Team Providers Care Meeting/Event Planner Name Role Phone Gianni Jernigan MD Primary Care Provider Allergies Active Allergy Reactions Criticality Noted Date Comments Omeprazole Swelling 07/21/2018 Penicillins Rash Low 07/21/2018 Albuterol Rash Low 07/21/2018 Medications amLODIPine (NORVASC) 5 MG tablet Take 1 tablet (5 mg total) by mouth daily. 11/13/2024 Active valACYclovir (VALTREX) 1 g tablet Take 1 tablet (1,000 mg total) by mouth daily. 08/31/2024 Active Active Problems Problem Noted Date Diagnosed Date Gestational HTN (HHS/HCC) 07/21/2018 Encounters Date Type Department Care Team Description 11/16/2024 12:57 PM CDT - 11/16/2024 5:45 PM CDT [facility] [address] [place] [address] [place] [address] Ivelisse Velazquez DO Evaluation Of Abnormal Ekg Discharge Disposition: Home or Self Care (Routine Discharge) 11/16/2024 Travel from Last 3 Months Immunizations Immunization Administration Dates Next Due Afluria 36 MONTHS+ (Prefilled Syringe IIV4) 07/15 Tdap (Boostrix) 07/21/2018 Social History Tobacco Use Types Packs/Day Years Used Date Smoking Tobacco: Never Smokeless Tobacco: Never Tobacco Cessation:Counseling Given: Not Answered Alcohol Use Standard Drinks/Week Comments No 0 (1 standard drink = 0.6 oz pur e alcohol) AUDIT-C Answer Date Recorded Frequency of Alcohol Consumption Never 02/05/2019 Average Number of Drinks Not on file 019 Frequency of Binge Drinking Not on file 01/14 Comments No Sex and Gender Information Value Date Recorded Sex Assigned at Female 11/16/2024 12:58 PM CDT 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 Gender Identity Female 11/16/2024 12:51 PM CDT Sexual Orientation Not on file Last Filed Vital Signs Vital Sign Reading Time Taken Comments Blood Pressure 149/93 11/16/2024 4:45 PM CDT Pulse 73 11/16/2024 4:45 PM CDT Temperature 36.6 C (97.9 F) 11/16/2024 12:46 PM CDT Respiratory Rate 18 11/16/2024 12:46 PM CDT Oxygen Saturation 98% 11/16/2024 4:45 PM CDT Inhaled Oxygen Concentration - - Weight 65.1 kg (143 lb 9.6 oz) 11/16/2024 12:46 PM CDT Height 160 cm (5' 3 ) 11/16/2024 12:46 PM CDT Body Mass Index 25.44 11/16/2024 12:46 PM CDT Plan of Treatment Health Maintenance Due Date Last Done Comments Cervical Cancer Screening Pap Smear (Age 30 to 64) Every 3 Years 1992 Annual Physical 1995 Hepatitis C 2010 Cervical Cancer Screening Pap with HPV Testing (Age 30 to 64) Every 5 Years 2022 Cervical Cancer Screening with HPV 2022 COVID-19 Vaccine ( season) 2024 DTaP, Tdap and Td Vaccines (6 - Td or Tdap) 07/21/2028 07/21/2018, 12/04/1996, 02/24/1996, Additional history exists Meningococcal Vaccine Aged Out 04/11/2007 No george shama eligible based on patient's age to complete this topic HPV Vaccines Completed 10/10/2007, 05/16, 04/11/2007 Hepatitis B Vaccines Completed 10/19/2016, 04/27/1993, 1992, Additional history exists Meningococcal B Vaccine Aged Out No l onger eligible based on patient's age to complete this topic Pneumococcal Vaccine: Pediatrics (0 to 5 Years) and At-Risk Patients (6 to 49 Years) Aged Out No longer eligible based on patient's age to complete this topic RSV Immunizations Under 20 Months Aged Out No longer eligible based on patient's age to complete this topic Procedures Procedure Name Priority Date/Time Associated Diagnosis Comments TROPONIN, QUANT STAT 11/16/2024 3:49 PM CDT XR CHEST PA+LAT STAT 11/16/2024 2:22 PM CDT TROPONIN, QUANT STAT 11/16/2024 2:03 PM CDT PRO-BRAIN NATRIURETIC PEPTIDE STAT 11/16/2024 2:03 PM CDT COMPREHENSIVE METABOLIC PANEL STAT 11/16/2024 2:03 PM CDT CBC W/DIFF AUTOMATED STAT 11/16/2024 2:03 PM CDT TEST URINE STAT 11/16/2024 2:00 PM CDT DRUG SCREEN RAPID STAT 11/16/2024 2:0 0 PM CDT HC URINALYSIS AUTO W/MICRO STAT 11/16/2024 2:00 PM CDT ECG 12-LEAD Routine 11/16/2024 1:04 PM CDT from Last 3 Months Results * TROPONIN, QUANT (11/16/2024 3:49 PM CDT) Only the most recent of2 resultswithin the time period is included. TROPONIN I HIGH SENSITIVITY 8 0 - 51 ng/L 11/16/2024 4:26 PM CDT [facility] 11/16/2024 3:49 PM CDT Ivelisse Velazquez DO LABORATORY Final Result [facility] [address] [place] [address], * XR CHEST PA+LAT (11/16/2024 2:22 PM CDT) Anatomical Region Laterality Modality Chest Radiographic Chen ging 11/16/2024 2:22 PM CDT Impressions 11/16/2024 2:22 PM CDT IMPRESSION: No acute disease. Ordered By: IVELISSE VELAZQUEZ Interpreted By: Tad Pulido MD, 11/16/2024 2:22 PM Narrative 11/16/2024 2:[address] [place] [address] Examination: Two-view chest Exam time: 1358 hours. Clinical history: Chest pain. Comparison: None. Technique: PA and lateral views Findings: The heart is within normal limits for size. Pulmonary vascularity is within normal limits. The lungs and pleural spaces appear free of any active process. The bony thorax is unremarkable for age and stature. Clothing artifact is noted. Procedure Note Tad Pulido MD - 11/16/[address] [place] [address] Examination: Two-view chest Exam time: 1358 hours. Clinical history: Chest pain. Comparison: None. Technique: PA and lateral views Findings: The heart is within normal limits for size. Pulmonaryvascularity is within normal limits. The lungs and pleural spaces appearfree of any active process. The bony thorax is unremarkable for age andstature. Clothing artifact is noted. IMPRESSION: No acute disease. Ordered By: IVELISSE VELAZQUEZ Interpreted By: Tad Pulido MD, 11/16/2024 2:22 PM us Ivelisse Velazquez DO GENERAL IMAGING Final Result * PRO-BRAIN NATRIURETIC PEPTIDE (11/16/2024 2:03 PM CDT) PRO-B TYPE NATRIURETIC PEPTIDE 58 <125 PG/ML 11/16/2024 2:36 PM CDT [facility] Comment: CUT POINTS ESTABLISHED BY INTERNATIONAL COLLABORATIVE ON NT PROBNP (ICON) STUDY (2006). AGE INDEPENDENT: <300 PG/ML HAS A 99% NEGATIVE PREDICTIVE VALUE FOR EXCLUDING ACUTE CHF <50 YEARS: >450 PG/ML IS CONSISTENT WITH ACUTE CHF 50-75 YEARS: >900 PG/ML IS CONSISTENT WITH ACUTE CHF >75 YEARS: >1800 PG/ML IS CONSISTENT WITH ACUTE CHF IN PATIENTS WITH RENAL INSUFFICIENCY (GFR <60), >1200 PG/ML YIELDS A DIAGNOSTIC SENSITIVITY AND SPECIFICITY OF 89% AND 72% FOR ACUTE CHF. 11/16/2024 2:03 PM CDT us Ivelisse Velazquez DO LABORATORY Final Result [facility] [address] [place] [address], * (ABNORMAL) COMPREHENSIVE METABOLIC PANEL (11/16/2024 2:03 PM CDT) SODIUM S/P/B 138 136 - 145 MMOL/L 11/16/2024 2:36 PM CDT [facility] POTASSIUM S/P/B 3.3(L) 3.5 - 5.1 MMOL/L 11/16/2024 2:36 PM CDT [facility] CHLORIDE S/P/B 100 98 - 107 MMOL/L 11/16/2024 2:36 PM CDT [facility] CO2 30.0 21.0 - 32.0 MMOL/L 11/16/2024 2:36 PM CDT [facility] GLUCOSE 90 70 - 99 MG/DL 11/16/2024 2:36 PM CDT [facility] Comment: FASTING GLUCOSE 100 TO 125 MG/DL IS CONSISTENT WITH IMPAIRED FASTING GLUCOSE. FASTING GLUCOSE >125 MG/DL IS CONSISTENT WITH DIABETES. RANDOM GLUCOSE >200 MG/DL WITH HYPERGLYCEMIC SYMPTOMS IS CONSISTENT WITH DIABETES. PER ADA GUIDELINES BUN 19 6 - 24 MG/DL 11/16/2024 2:36 PM CDT [facility] CREATININE S/P/B 0.84 0.55 - 1.02 MG/DL 11/16/2024 2:36 PM CDT [facility] CALCIUM S/P/B 8.6 8.4 - 10.5 MG/DL 11/16/2024 2:36 PM T [facility] BILIRUBIN TOTAL S/P/B 0.3 0.2 - 1.0 MG/DL 11/16/2024 2:36 PM T [facility] Comment: THIS ASSAY IS NOT RECOMMENDED FOR PATIENTS UNDERGOING TREATMENT WITH ELTROMBOPAG DUE TO THE POTENTIAL FOR FALSELY ELEVATED RESULTS. ALKALINE PHOSPHATASE S/P/B 115(H) 37 - 98 U/L 11/16/2024 2:36 PM CDT [facility] AST 15 15 - 37 U/L 11/16/2024 2:36 PM T [facility] ALT 19 14 - 59 U/L 11/16/2024 2:36 PM T [facility] TOTAL PROTEIN S/P/B 8.0 6.4 - 8.2 G/DL 11/16/2024 2:36 PM T [facility] ALBUMIN S/P/B 3.9 3.4 - 5.0 G/DL 11/16/2024 2:36 PM T [facility] ANION GAP 8.0 5.0 - 15.0 MMOL/L 11/16/2024 2:36 PM T [facility] OSMOLALITY (CALC) 288 MOSM/KG 025 2:36 PM T [facility] Comment:REFERENCE RANGE NOT ESTABLISHED GFR ESTIMATE >90 >89 ML/MIN/1. 73 M2 11/16/2024 2:36 PM T [facility] GFR NOTES GFR REFERENCE S: 11/16/2024 2:36 PM T [facility] Comment: THE ESTIMATED GFR IS CALCULATED USING THE 2020 CKD-EPI EQUATION. THE FOLLOWING CATEGORIES FOR GRADING RENAL FUNCTION ARE RECOMMENDED BY THE INTERNATIONAL SOCIETY OF NEPHROLOGY (KDIGO 2012 CLINICAL PRACTICE GUIDELINE). G1,NORMAL OR HIGH: >89 ml/min/1.73 m2 G2,MILDLY DECREASED: 60-89 ml/min/1.73 m2 G3A,MILDLY TO MODERATELY DECREASED: 45-59 ml/min/1.73 m2 G3B,MODERATELY TO SEVERELY DECREASED: 30-44 ml/min/1.73 m2 G4,SEVERELY DECREASED: 15-29 ml/min/1.73 m2 G5,KIDNEY FAILURE: <15 ml/min/1.73 m2 11/16/2024 2:03 PM CDT Ivelisse Velazquez DO LABORATORY Final Result [facility] [address] [place] [address], * (ABNORMAL) CBC W/DIFF AUTOMATED (11/16/2024 2:03 PM CDT) WBC 6.68 4.00 - 10.80 x10'3/uL 11/16/2024 2:13 PM CDT [facility] RBC 4.38 4.10 - 5.40 x10'6/uL 11/16/2024 2:13 PM CDT [facility] HGB 10.1(L) 12.0 - 16.0 G/DL 11/16/2024 2:13 PM CDT [facility] HCT 32.5(L) 36.0 - 47.0 % 11/16/2024 2:13 PM CDT [facility] MCV 74.2(L) 78.0 - 100.0 FL 11/16/2024 2:13 PM CDT [facility] MCH 23.1(L) 27.0 - 31.0 PG 11/16/2024 2:13 PM CDT [facility] MCHC 31.1(L) 33.0 - 36.0 G/DL 11/16/2024 2:13 PM CDT [facility] RDW 17.8(H) 11.5 - 14.5 % 11/16/2024 2:13 PM CDT [facility] PLT 338 150 - 350 x10'3/uL 11/16/2024 2:13 PM CDT [facility] MPV 9.2 7.4 - 10.4 FL 11/16/2024 2:13 PM CDT [facility] CBC COMMENT NORMAL REFERENCE RANGE NOT ESTABLISHED FOR THE PROPORTIONAL LEUKOCYTE DIFFERENTIAL. 11/16/2024 2:13 PM CDT [facility] NEUTROPHILS % 60.3 % 11/16/2024 2:13 PM CDT [facility] LYMPHOCYTES % 30.8 % 11/16/2024 2:13 PM CDT [facility] MONOCYTES % 5.4 % 11/16/2024 2:13 PM CDT [facility] EOSINOPHILS % 2.5 % 11/16/2024 2:13 PM CDT [facility] BASOPHILS % 0.9 % 11/16/2024 2:13 PM CDT [facility] IMMATURE GRANS % 0.1 % 11/17/19 2:13 PM CDT [facility] NRBC % 0.0 % 11/16/2024 2:13 PM CDT [facility] ABS. NEUTROPHILS 4.02 1.60 - 8.30 x10'3/uL 11/16/2024 2:13 PM CDT [facility] ABS. LYMPHOCYTES 2.06 0.80 - 4.70 x10'3/uL 11/16/2024 2:13 PM CDT [facility] ABS. MONOCYTES 0.36 0.00 - 1.50 x10'3/uL 11/16/2024 2:13 PM CDT [facility] ABS. EOSINOPHILS 0.17 0.00 - 0.40 x10'3/uL 11/16/2024 2:13 PM CDT [facility] ABS. BASOPHILS 0.06 0.00 - 0.20 x10'3/uL 11/16/2024 2:13 PM CDT [facility] ABS. IMMATURE GRANULOCYTES 0.01 0.00 - 0.03 x10'3/uL 11/16/2024 2:13 PM CDT [facility] ABS. NUCLEATED RBC'S 0.00 0.00 - 0.01 x10'3/uL 11/16/2024 2:13 PM CDT [facility] 11/16/2024 2:03 PM CDT us Ivelisse Velazquez DO LABORATORY Final Result [facility] [address] [place] [address], * DRUG SCREEN RAPID (11/16/2024 2:00 PM CDT) CANNABINOIDS SCREEN (U) NEGATIVE NEGATIVE 11/16/2024 2:43 PM CDT [facility] PHENCYCLIDINE PCP (U) NEGATIVE NEGATIVE 11/16/2024 2:43 PM CDT [facility] COCAINE METABOLITES (U) NEGATIVE NEGATIVE 11/16/2024 2:43 PM CDT [facility] METHAMPHETAMINE SCREEN (U) NEGATIVE NEGATIVE 11/16/2024 2:43 PM CDT [facility] OPIATE SCREEN (U) NEGATIVE NEGATIVE 2:43 PM CDT [facility] AMPHETAMINE SCREEN (U) NEGATIVE NEGATIVE 11/16/2024 2:43 PM CDT [facility] BENZODIAZEPINES SCREEN (U) NEGATIVE NEGATIVE 11/16/2024 2:43 PM CDT [facility] TRICYCLIC ANTIDEPRESSANT SCREEN (U) NEGATIVE NEGATIVE 11/16/2024 2:43 PM CDT [facility] METHADONE (U) NEGATIVE NEGATIVE 11/16/2024 2:43 PM CDT [facility] BARBITURATES SCREEN (U) NEGATIVE NEGATIVE 11/16/2024 2:43 PM CDT [facility] OXYCODONE SCREEN (U) NEGATIVE NEGATIVE 11/16/2024 2:43 PM CDT [facility] URINE TOX COMMENT THIS TEST METHODOLOGY IS DESIGNED AND OFFERED A RAPID TURNAROUND, QUALITATIVE SCREENING PROCEDURE TO AID IN THE IMMEDIATE MEDICAL ASSESSMENT OF PATIENTS SUSPECTED OF SUBSTANCE ABUSE. 11/16/2024 2:08 PM CDT [facility] Comment: CLINICAL CONSIDERATION AND PROFESSIONAL JUDGMENT MUST BE APPLIED TO ANY DRUG OF ABUSE TEST RESULT, BOTH POSITIVE AND NEGATIVE. CONFIRMATORY QUANTITATIVE RESULTS ARE AVAILABLE THROUGH OUR [facility]. URINE SPECIMEN / Unknown 11/16/2024 2:00 PM CDT us Ivelisse Velazquez DO URINE ORDERABLES Final Result [facility] [address] [place] [id number], [place] [phone] * (ABNORMAL) URINALYSIS (11/16/2024 2:00 PM CDT) COLOR (U) YELLOW 11/16/2024 2:35 PM CDT [facility] TRANSPARENCY CLEAR 11/16/2024 2:35 PM CDT [facility] SPECIFIC GRAVITY (U) 1.030(H) 1.000 - 1.025 11/16/2024 2:35 PM CDT [facility] Comment:EQUAL TO OR GREATER THAN U PH 6.0 5.0 - 8.0 11/16/2024 2:35 PM CDT [facility] LEUKOCYTES (U) NEGATIVE NEGATIVE 11/16/2024 2:35 PM CDT [facility] NITRITES NEGATIVE NEGATIVE 11/16/2024 2:35 PM CDT [facility] PROTEIN RANDOM (U) 1+(A) NEGATIVE 11/16/2024 2:35 PM CDT [facility] GLUCOSE (U) NEGATIVE NEGATIVE 11/16/2024 2:35 PM CDT [facility] KETONES MG/DL (U) NEGATIVE NEGATIVE 11/16/2024 2:35 PM CDT [facility] UROBILINOGEN 1.0(H) <1.0 EU/DL 11/16/2024 2:35 PM CDT [facility] BILIRUBIN (U) NEGATIVE NEGATIVE 11/16/2024 2:35 PM CDT [facility] BLOOD (U) NEGATIVE NEGATIVE 11/16/2024 2:35 PM CDT [facility] WBC/HPF 0-5 0 - 5 /HPF 11/16/2024 2:35 PM CDT [facility] RBC/HPF 0-5 0 - 5 /HPF 11/16/2024 2:35 PM CDT [facility] EPI/LPF RARE /LPF 11/16/2024 2:35 PM CDT [facility] BACTERIA (U) TRACE /HPF 11/16/2024 2:35 PM CDT [facility] URINE SPECIMEN OBTAINED BY CLEAN CATCH PROCEDURE / Unknown 11/16/2024 2:00 PM CDT us Ivelisse Velazquez DO URINE ORDERABLES Final Result Performing Organization Address [facility] [place] [address], * TEST URINE (11/16/2024 2:00 PM CDT) URINE HCG TEST NEGATIVE 11/16/2024 2:24 PM CDT [facility] SPECIFIC GRAVITY >1.030 11/16/2024 2:24 PM CDT [facility] URINE SPECIMEN FROM URETHRA / Unknown 11/16/2024 2:00 PM CDT us Ivelisse Velazquez DO URINE ORDERABLES Final Result Performing Organization Address [facility] Co de Phone Number [address] [address], * ECG 12 lead (11/16/2024 1:04 PM CDT) 11/16/2024 1:04 PM CDT Narrative [facility] - 11/16/2024 2:05 PM CDT [address] [place] [address] Test Date: 2024-11-16 Pat Name: SIMIN MEDEIROS Department: 3 Room: Gender: Female Image Consultant: REYNALDO : 1990 Requested By: IVELISSE VELAZQUEZ Order Number: [id number] Meño MD: Abhay Miller Measurements Intervals [place] Rate: 74 P: 57 ID: 132 QRS: 69 QRSD: 77 T: -4 QT: 392 QTc: 436 Interpretive Statements SINUS RHYTHM POSSIBLE LEFT ATRIAL ENLARGEMENT NONSPECIFIC ST & T-WAVE ABNORMALITY Consider Left Ventricular Hypertrophy Procedure Note Abhay Miller MD - 11/16/[address] [place] [address] Test Date: 2024-11-16 Pat Name: SIMIN MEDEIROS Department: 3 Room: Gender: Female Image Consultant: REYNALDO : 1990 Requested By: IVELISSE VELAZQUEZ Order Number: [id number] Reading MD: Abhay Miller Measurements Intervals [place] Rate: 74 P: 57 ID: 132 QRS: 69 QRSD: 77 T: -4 QT: 392 QTc: 436 Interpretive Statements SINUS RHYTHM POSSIBLE LEFT ATRIAL ENLARGEMENT NONSPECIFIC ST & T-WAVE ABNORMALITY Consider Left Ventricular Hypertrophy us Ivelisse Velazquez DO ECG ORDERABLES Final Result [facility] from Last 3 Months Insurance [employer] Advance Directives * Full Code (Latest Code Status on File) Date Activated Date Inactivated Comments 08/15/2018 11:06 AM 08/18/2018 3:21 PM * Full Code Date Activated Date Inactivated Comments 07/21/2018 12:01 PM 08/15/2018 11:06 AM Care Teams Meeting/Event Planner Relationship Specialty Start Date End Date Gianni Jernigan MD [address] [place] [phone] PCP - General FAMILY PRACTICE 07/08/23
--- OUTSIDE RECORDS SUMMARY | 2024-12-03 11:19 | XMS_ITS | Encounter Summary ---
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 Name Role Phone Julio Dukes MD Primary Care Provider [phone] Gianni Jernigan MD Primary Care Provider [phone] Encounter Details Date Type Department Care Team (Late st Contact Info) Description 01/20/2019 Abstract [facility] CONVERSION [address] [address] , Generic Conversion, Social History Tobacco Use Types Packs/Day Years Used Date Smoking Tobacco: Never Smokeless Tobacco: Never Comments No Sex and Gender Information Value Date Recorded Sex Assigned at Female 11/16/2024 12:58 PM CDT 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
== END 2024-12-03 10:02 | disposition home or self-care (01) ==
LOC: CHSCARD 10:04
PROVIDERS: PCP Family Medicine; Visit Provider Registered Nurse
DX: R07.9 Chest pain, unspecified (principal)
CPT/HCPCS: 93017

== ENCOUNTER 2025-01-01 15:48 | Outpatient (CLI) | payer OTHER, SELFPAY ==
--- OUTSIDE RECORDS SUMMARY | 2025-01-01 15:51 | XMS_ITS | Clinical Summary ---
Author Organization [facility] Address [address] [place] [address] Care Team Providers Care Floor Runner Name Role Phone Unavailable Primary Care Provider Unavailabl e Source Comments [facility],non-owned Affiliates and Associated Physician Practices is amultiple site organization consisting of ambulatory clinics and hospital sitesin [place], [place], [place] and [place]. This disclosure is being madepursuant to the Care Everywhere program and may not contain all information available regarding this patient. Last updated 18.[facility] Allergies Active Allergy Reactions Criticality Noted Date [...] migh t be different from the original. [facility] form completed. Diapers given. 06/15/2021, 06/22/2021 Problem Noted Date Diagnosed Date Wound dehiscence, , delivered with complication 06/22/2021 Assessment & Plan (06/22/2021 4:11 PM BELLHOP SERVICE CAPTAIN): Would breakdown shortly after staple removal. No [...] been staying with at and did not warp picker prescription for roxicodone that was sent to her pharmacy in [place]. 1. encouraged to continue scheduled tylenol and motrin 2. 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 Diabetes testing 4-5 weeks after delivery [...] promptly go to L/D and call her Highway Engineering Technician. Simin was agreeable. 4. Instructed to log her blood pressures and check twice daily, alert Highway Engineering Technician for elevations equal to or >155/95; either [...] on repeat evaluation. Chart review with primary Highway Engineering Technician also shows elevations prior to 20 weeks: 11/18: 148/96, 01/19: 146/88; along with diagnosis of hypertension. Elevations noted in ED on 11/11 could have been exacerbated by bleeding during her . B. Chronic hypertension is associated with a 20-25% risk for superimposed preeclampsia. Low dose aspirin has a small-moderate benefit in the prevention of preeclampsia in at risk women (Jonny DSR, 2008). The reduction in risk is [...] blood pressures and check twice daily, alert Highway Engineering Technician for elevations equal to or >155/95; either [...] trimester Assessment & Plan (06/22/2021 4:11 PM BELLHOP SERVICE CAPTAIN): BP acceptable. Resolved Problems Problem Noted Date [...] PM CDT): Reviewing the medical records from [facility] (encounter on November 11, 2020) [...] on file Legal Sex Female 5:35 AM BELLHOP SERVICE CAPTAIN Gender Identity Not on file Sexual Orientation Not on file Last Filed Vital Signs Vital Sign Reading Time Taken Comments Blood Pressure 133/88 06/29/2021 10:25 AM BELLHOP SERVICE CAPTAIN Pulse 92 06/29/2021 10:25 AM BELLHOP SERVICE CAPTAIN Temperature 36.3 C (97.4 F) 06/18/2021 9:51 AM CDT Respiratory Rate 15 06/18/2021 10:53 AM CDT Oxygen Saturation 98% 06/18/2021 10:53 AM CDT Inhaled Oxygen Concentration - - Weight 66.2 kg (146 lb) 06/29/2021 10:25 AM BELLHOP SERVICE CAPTAIN Height 135 cm (4' 5.15 ) 06/18/2021 [...] patient's age to complete this topic [place] [address] * Guarantor: SIMIN MEDEIROS Account Type Relation to Patient Date of Phone Billing Address Personal/Family [address] [place] [address] [facility] SELF PAY NO INSURANCE Member Subscriber Plan / Payer (Ef fective for All Dates) Name:Simin Medeiros Member ID:Not on file Relation to Subscriber:Not on file Name:SIMIN MEDEIROS Subscriber ID:Not on file Address: [address] [place] [address] Payer ID:Not on file Group ID:Not on file Type:Self Pay Address: [place], [place] * Guarantor: SIMIN MEDEIROS Account Type Relation to Patient Date of Phone Billing Address Personal/Family [address] [place] [address] [facility] SELF PAY NO INSURANCE Member Subscriber Plan / Payer (Ef fective for All Dates) Name:Simin Medeiros Member ID:Not on file Relation to Subscriber:Not on file Name:SIMIN MEDEIROS Subscriber ID:Not on file Address: [address] [place] [address] Payer ID:Not on file Group ID:Not on file Type:Self Pay Address: [place], [place] * Guarantor: SIMIN MEDEIROS Account Type Relation to Patient Date of Phone Billing Address Personal/Family [address] [place] [address] [facility] SELF PAY NO INSURANCE Member Subscriber Plan / Payer (Ef fective for All Dates) Name:Simin Medeiros Member ID:Not on file Relation to Subscriber:Not on file Name:JUDAHEILEEN OSORIOSIMIN Subscriber ID:Not on file Address: [facility] [place] [address] Payer ID:Not on file Group ID:Not on file Type:Self Pay Address: [place], [place] Advance Directives * Full Code (Latest Code Status on File) Date Activated Date Inactivated Comments 06/12/2021 10:33 PM 06/14/2021 3:02 PM * Full Code Date Activated Date Inactivated Comments 06/09/2021 8:37 PM 06/12/2021 10:33 PM
--- NOTE | 2025-01-01 15:53 | ECHO_ITS ---
Patient Info Name: Simin Medeiros Age: 34 years : 1990 Gender: Female Ht: 63 in Wt: 150 lbs BSA: 1.76 m2 HR: 62 bpm BP: 164 / 88 mmHg Heart Rhythm: Sinus Rhythm Technical Quality: Good Exam Date: 01/01/2025 4:16 PM Patient Status: unknown Admit Date: 01/01/2025 Exam Type: CA echo doppler color flow Complete two-dimensional, color flow and Doppler transthoracic echocardiogram is performed. 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 Complete two-dimensional, color flow and Doppler transthoracic echocardiogram is performed. 2. Left ventricular chamber dimension is normal. 3. Left ventricular systolic function is normal, estimated at 60-65. 4. The left ventricular diastolic function is normal. 5. E/e' 10 is mildly elevated. 6. There is trace tricuspid valve regurgitation. 7. No pulmonary hypertension, estimated pulmonary arterial systolic pressure is 34 mmHg. Left Ventricle E/e' 10 is mildly elevated. Left ventricular chamber dimension is normal. Left ventricular systolic function is normal, estimated at 60-65. The left ventricular diastolic function is normal. Right Ventricle Right ventricular chamber dimension is normal. Right ventricular systolic function is normal and with normal TAPSE 2.2 cm. Left Atria Left atrial chamber dimension is normal. Right Atria Right atrial chamber dimension is normal. Aortic Valve The aortic valve is trileaflet. There is no aortic valve stenosis. There is no aortic valve regurgitation. Pulmonic Valve There is no pulmonic regurgitation. Mitral Valve There is no mitral valve stenosis. There is no mitral valve regurgitation. Tricuspid Valve There is trace tricuspid valve regurgitation. No pulmonary hypertension, estimated pulmonary arterial systolic pressure is 34 mmHg. Pericardium/Pleural There is no pericardial effusion. Inferior Vena Cava Normal inferior vena cava with >50% collapse upon inspiration consistent with normal right atrial pressure, 5 mmHg. Aorta The aortic root size at the sinus of Valsalva is normal. Left Ventricular Outflow Tract Name Value Normal LVOT 2D LVOT Diameter 2.0 cm LVOT Doppler LVOT Peak Velocity 126 cm/s LVOT Peak Gradient 6 mmHg LVOT Mean Gradient 4 mmHg LVOT VTI 27 cm LVOT VTI/AV VTI Ratio 0.7 LVOT Stroke Volume 84 ml LVOT CO 5.7 l/min LVOT CI 3.3 l/min/m2 Pulmonic Valve Name Value Normal RVOT Doppler RVOT Peak Velocity 90 cm/s RVOT Peak Gradient 3 mmHg PV Doppler PV Peak Velocity 94 cm/s PV Peak Gradient 4 mmHg Mitral Valve Name Value Normal MV Diastolic Function MV E Peak Velocity 132 cm/s MV A Peak Velocity 75 cm/s MV E/A 1.8 MV Decel Time (PW) 171 ms MV Annular TDI MV E/e' (Septal) 14.4 MV E/e' (Lateral) 8.4 MV E/e' (Average) 11.4 Tricuspid Valve Name Value Normal TV Regurgitation Doppler TR Peak Velocity 270 cm/s TR Peak Gradient 29 mmHg Estimated PAP/RSVP RA Pressure 5 mmHg <=5 PA Systolic Pressure 34 mmHg <36 RV Systolic Pressure 34 mmHg <36 TV Annular TDI TV Lateral Ruth s' Velocity 10.7 cm/s >=9.5 Aortic Valve Name Value Normal AV Doppler AV Peak Velocity 171 cm/s AV Peak Gradient 12 mmHg AV Mean Gradient 6 mmHg AV VTI 38 cm AV Area (Cont Eq VTI) 2.2 cm2 >=3.0 AV Area (Cont Eq Agustin) 2.3 cm2 AV DI (Agustin) 0.74 AV Regurgitation 2D LVOT Area 3.1 cm2 Ventricles Name Value Normal LV Dimensions 2D/MM IVS Diastolic Thickness (2D) 1.0 cm 0.6-1.0 LVID Diastole (2D) 4.5 cm 3.8-5.2 LVIW Diastolic Thickness (2D) 0.8 cm 0.6-0.9 LVID Systole (2D) 2.8 cm 2.2-3.5 LVOT Diameter 2.0 cm LV Mass (2D Cubed) 135.49 g 67.00-162.00 LV Mass Index (2D Cubed) 77 g/m2 43-95 Relative Wall Thickness (2D) 0.37 <=0.42 LV Fractional Shortening/Ejection Fraction 2D/MM LV Fractional Shortening (2D) 37 % 27-45 LV EF (2D Teichholz) 67 % LV Diastolic Volume (4C MOD) 161 ml LV EF (4C MOD) 64 % LV Diastolic Volume (2C MOD) 149 ml LV EF (2C MOD) 61 % LV Diastolic Volume (BP MOD) 159 ml 46-106 LV Diastolic Volume Index (BP MOD) 91 ml/m2 29-61 LV Systolic Volume (BP MOD) 58 ml 14-42 LV Systolic Volume Index (BP MOD) 33 ml/m2 8-24 LV EF (BP MOD) 64 % 54-74 LV Diastolic Length (4C) 9.8 cm LV Systolic Length (4C) 7.8 cm LV Stroke Volume (4C MOD) 104 ml Atria Name Value Normal LA Dimensions LA Volume (4C A-L) 59 ml LA Volume (BP A-L) 82 ml RA Dimensions RA Systolic Major [place] Length (4C) 4.7 cm 2.2-2.8 RA Area (4C) 18.4 cm2 <=18.0 Report Signatures
== END 2025-01-01 15:49 | disposition home or self-care (01) ==
PROVIDERS: PCP Family Medicine; Visit Provider Registered Nurse
DX: R07.9 Chest pain, unspecified (principal)
CPT/HCPCS: 93306